=== PATIENT | female | born 1960 | race Caucasian/White ===

== ENCOUNTER → 2016-06-16 | Outpatient (CLI) | payer BC ==
[2016-06-16 11:19] LABS: Basophils % (A) 1 %; CH 29.5; Eosinophils # (A) 0.1 k/uL (0-0.7); Eosinophils % (A) 2 %; HDW 2.64; HGB 12.7 gm/dL (11.4-16.0); Hypochromasia Slight; Luc # (Auto) 0.18; Luc % (Auto) 2; Lymphocytes # (A) 1.9 k/uL (1.0-4.8); Lymphocytes % (A) 26 %; MCH 29.4 pg (25.0-35.0); MCHC 31.7 g/dL (31.0-37.0); MCV 92.5 fL (80.0-100.0); Mean Platelet Volume 7.7; Monocytes # (A) 0.3 k/uL (0-1.0); Monocytes % (A) 5 %; Neutrophils # (A) 4.7 k/uL (1.3-7.7); Neutrophils % (A) 65 %; RBC 4.32 m/uL (3.80-5.40); RDW 13.7 % (11.5-15.5); WBC 7.3 k/uL (3.8-10.6); WBC (Perox) 7.44
[2016-06-16 11:39] LABS: Glucose 86 mg/dL (74-99)
[2016-06-16 11:40] LABS: ALT 34 U/L (9-52); AST 21 U/L (14-36); Alkaline Phosphatase 93 U/L (38-126); Anion Gap 12 mmol/L; Blood Urea Nitrogen 24 mg/dL (7-17); Calcium 10.3 mg/dL (8.4-10.2); Carbon Dioxide 27 mmol/L (22-30); Chloride 105 mmol/L (98-107); Cholesterol 186 mg/dL (<200); HDL Cholesterol 75 mg/dL (40-60); Non-African American GFR(MDRD) >60 (>60 ml/min/1.73 sqM); Potassium 4.7 mmol/L (3.5-5.1); Sodium 144 mmol/L (137-145); Total Bilirubin 0.5 mg/dL (0.2-1.3); Total Protein 7.9 g/dL (6.3-8.2); Triglycerides 66 mg/dL (<150)
== END | disposition home or self-care (01) ==
LOC: LABWHC1 10:02
PROVIDERS: ATTEND Internal Medicine
DX: Z00.00 Encounter for general adult medical examination without abnormal findings (principal)
CPT/HCPCS: 36415; 80053; 80061; 82652; 84443; 85025

== ENCOUNTER → 2016-07-21 | Outpatient (CLI) | payer BC ==
--- NOTE | 2016-07-21 14:38 | US ---
EXAMINATION TYPE: US liver DATE OF EXAM: 07/21/2016 2:08 PM COMPARISON: NONE CLINICAL HISTORY: K76.9 Liver Disease. MRI at showed liver finding that was 1cm - per patient, did not have report, not symptomatic EXAM MEASUREMENTS: Liver Length: 17.5 cm Gallbladder Wall: 0.2 cm CBD: 0.4 cm Right Kidney: 10.4 x 3.7 x 4.0cm TECHNOLOGIST IMPRESSION: Pancreas: wnl Liver: 1.3cm posterior right lobe cyst seen Gallbladder: wnl Evidence for sonographic Alexander's sign: no CBD: wnl Right Kidney: wnl Visualized pancreas is slightly heterogeneous in appearance without evidence of pancreatic mass or pa ncreatic ductal dilatation. IVC is seen near hepatic dome. Liver is heterogeneously hyperechoic in ap pearance without evidence of intrahepatic ductal dilatation. Evaluation for focal masses is limited d ue to the heterogeneity. In the right hepatic lobe there is 1.4 x 0.7 cm oval anechoic lesion with in creased through transmission felt to reflect simple thin-walled cyst. Gallbladder is seen without sha dowing mobile gallstones or abnormal gallbladder wall thickening. Limited images right kidney show no gross hydronephrosis. IMPRESSION: Heterogeneity of liver likely reflects diffuse fatty infiltration. A 1.4 cm simple appear ing thin-walled oval cyst is noted in the right hepatic lobe. Correlate with old outside MRI advised.
== END | disposition home or self-care (01) ==
LOC: RADUSWWP 14:05
PROVIDERS: ATTEND Internal Medicine Gastroenterology
DX: K76.89 Other specified diseases of liver (principal)
CPT/HCPCS: 76705

== ENCOUNTER 2016-08-06 08:32 | Day surgery (SDC) | payer BC ==
[2016-08-03 14:50] VITALS: BMI 36.0
[~2016-08-06 08:32] MED LIST: LACTATED RINGERS 1,000 ML IV SCH
[2016-08-06 09:38] VITALS: RESP 16; TEMP 97.3
[2016-08-06] MEDS ORDERED: PROPOFOL 10 MG/ML 20 ML VIAL IV ONE (10:05)
--- NOTE | 2016-08-06 10:20 | P.PCN ---
Date of Procedure: 08/06/16 Procedure(s) Performed: BRIEF HISTORY: Patient is a 56-year-old pleasant female, scheduled for an elective colonoscopy as a part of screening for colorectal neoplasia. PROCEDURE PERFORMED: Colonoscopy with biopsy PREOPERATIVE DIAGNOSIS: Screening for colon cancer. IV sedation per Anesthesia. PROCEDURE: After informed consent was obtained, the patient, was brought into the endoscopy unit. IV conscious sedation was administered by Anesthesia under continuous monitoring. Initially the Olympus CF-160 flexible video colonoscope was then inserted in the rectum, gradually advanced into the cecum without any difficulty. Careful examination was performed as the scope was gradually being withdrawn. Ileocecal valve and the appendiceal orifice were visualized and appeared normal. Prep was excellent. Mucosa of the cecum, ascending colon, appeared normal. In the transverse colon there was a 5 mm polyp that was removed by biopsy. The rest of the transverse colon, descending colon, sigmoid colon, and rectum appeared normal. Moderate sigmoid diverticulosis seen. Retroflexion was performed in the rectum and no lesions were seen. The patient tolerated the procedure well. IMPRESSION: Moderate similar diverticulosis 5 mm transverse colon polyp status post removal by biopsy RECOMMENDATIONS: Findings of this examination were discussed with the patient as well as her family. She was advised to follow with the biopsy results. If the biopsy shows a tubular adenoma she can have a repeat colonoscopy in 5 years.
[2016-08-06 10:38] VITALS: BP 120/76; PULSE 67
--- NOTE | 2016-08-10 15:19 | CDI ---
Pt Name: Vanessa Shultz CONFIDENTIAL MR#: [id number] Adm Date: 08/06/2016 8:32:00 AM Printed:08/10/2016 Physician Documentation Request Page 1 of 1 ICD-10-CM Ready Physicians Documentation Request Patient: Vanessa Shultz EPI: [id number] Account: [id number] Payer: [facility] Facility: [facility] Location: - Admit Date: 08/06/2016 8:32:00 AM Query Send By: Poppy Ochoa Phone #: Ext. Communication Date: 08/10/2016 3:14:00 PM Clarification Outpatient By submitting this query, we are merely seeking further clarification of documentation to accurately reflect all conditions that you are monitoring, evaluating, treating or that extend the hospitalization or utilize additional resources of care. Please utilize your independent clinical judgment when addressing the question(s) below. Dear Doctor Ellen Carpenter, The patients Clinical Indicators include: see below Documentation Clarification OP There is a conflict regarding the sedation used during the procedure. Your procedure note states "IV conscious sedation was administered by Anesthesia", but there is other documentation within the encounter that reflects general anesthesia. Which type of sedation/anesthesia was used during the procedure? Please document as an addendum to your op report. This information is needed for proper coding and billing. Thanks! PLEASE DOCUMENT ANY ADDITIONAL DIAGNOSES AND/OR SPECIFICITY IN THE PROGRESS NOTES AND/OR DISCHARGE SUMMARY. Agreed & documented Unable to determine/unknown Disagree with the above request Need to discuss MTDD
--- NOTE | 2016-08-17 08:49 | CDI ---
Pt Name: Vanessa Shultz CONFIDENTIAL MR#: [id number] Adm Date: 08/06/2016 8:32:00 AM Printed:08/17/2016 Physician Documentation Request Page 1 of 1 ICD-10-CM Ready Physicians Documentation Request Patient: Vanessa Shultz EPI: [id number] Account: [id number] Payer: [facility] Facility: [facility] Location: - Admit Date: 08/06/2016 8:32:00 AM Query Send By: Poppy Ochoa Phone #: Ext. Communication Date: 08/17/2016 8:45:00 AM Clarification Outpatient By submitting this query, we are merely seeking further clarification of documentation to accurately reflect all conditions that you are monitoring, evaluating, treating or that extend the hospitalization or utilize additional resources of care. Please utilize your independent clinical judgment when addressing the question(s) below. Dear Doctor Ellen Carpenter, The patients Clinical Indicators include: see below Documentation Clarification OP There is a conflict regarding the sedation used during the procedure. Your procedure note states "IV conscious sedation was administered by Anesthesia", but there is other documentation within the encounter that reflects other anesthesia. Which type of sedation/anesthesia was used during the procedure? Moderate/conscious, general/unconscious? Please clarify and document as an addendum to your op report. This information is needed for proper coding and billing. If you dont understand what is needed from you, please contact my wastewater project manager, Corin Christianson at [phone]. Thank you. PLEASE DOCUMENT ANY ADDITIONAL DIAGNOSES AND/OR SPECIFICITY IN THE PROGRESS NOTES AND/OR DISCHARGE SUMMARY. Agreed & documented Unable to determine/unknown Disagree with the above request Need to discuss MTDD
--- NOTE | 2016-08-20 11:54 | PCN ---
ADDENDUM TO PROCEDURE NOTE: General anesthesia instead of IV conscious sedation utilized.
== END 2016-08-06 11:13 | disposition home or self-care (01) ==
LOC: ORWHC2ENDO 08:32
PROVIDERS: ATTEND Internal Medicine Gastroenterology
DX: Z12.11 Encounter for screening for malignant neoplasm of colon (principal); K63.5 Polyp of colon; K57.30 Diverticulosis of large intestine without perforation or abscess without bleeding; I10 Essential (primary) hypertension; E78.5 Hyperlipidemia, unspecified; K21.9 Gastro-esophageal reflux disease without esophagitis; Z79.899 Other long term (current) drug therapy; Z87.891 Personal history of nicotine dependence
CPT/HCPCS: 88305; 45380; J2704

== ENCOUNTER 2017-11-30 12:46 | Emergency (ER) | payer BC, OTHER ==
[2017-11-30] MEDS ORDERED: IBUPROFEN 600 MG TAB PO STA (13:12)
--- NOTE | 2017-11-30 14:19 | ED ---
General Adult HPI - General Chief complaint: Extremity Injury, Lower Stated complaint: rt knee pain - [facility] Time Seen by Provider: 11/30/17 13:03 Source: patient, RN notes reviewed Mode of arrival: ambulatory Limitations: no limitations - History of Present Illness Initial comments: 57-year-old female presents to the emergency department for a chief complaint of right knee pain 4 hours. Patient states she was walking in a freezer when she slipped on ice. Patient states she twisted her right knee and fell on it. Patient denies any pain in the calf or behind the knee. Patient states the pain is on the anterior aspect of the right knee. Patient denies any pain in the ankle or hip. Patient did not hit her head or sustain any other injuries. Patient has been icing the knee. Patient has no other complaints at this time including shortness of breath, chest pain, abdominal pain, nausea or vomiting, headache, or visual changes. - Related Data Home Medications Medication Instructions Recorded Confirmed Gemfibrozil [Lopid] 600 mg PO BID 08/03/16 08/06/16 Losartan-Hctz 50-12.5 mg [Hyzaar 1 each PO DAILY 08/03/16 08/06/16 50-12.5] Ranitidine HCl [Zantac] 150 mg PO DAILY 08/03/16 08/06/16 Phentermine HCl [Adipex-P] 1 tab PO DAILY 11/30/17 11/30/17 Allergies Allergy/AdvReac Type Severity Reaction Status Date / Time No Known Allergies Allergy Verified 11/30/17 12:56 Review of Systems ROS Statement: Those systems with pertinent positive or pertinent negative responses have been documented in the HPI. ROS Other: All systems not noted in ROS Statement are negative. Past Medical History Past Medical History: GERD/Reflux, Hyperlipidemia, Hypertension History of Any Multi-Drug Resistant Organisms: None Reported Past Surgical History: Hysterectomy, Orthopedic Surgery Additional Past Surgical History / Comment(s): RT ROTATOR CUFF. OVARIAN CYSTECTOMY. COLONOSCOPY Past Anesthesia/Blood Transfusion Reactions: No Reported Reaction Past Psychological History: No Psychological Hx Reported Smoking Status: Former smoker Past Alcohol Use History: None Reported Past Drug Use History: None Reported - Past Family History Mother Family Medical History: Cancer Additional Family Medical History / Comment(s): COLON Sister(s) Family Medical History: Cancer Additional Family Medical History / Comment(s): BREAST General Exam Limitations: no limitations General appearance: alert, in no apparent distress Head exam: Present: atraumatic, normocephalic, normal inspection Eye exam: Present: normal appearance ENT exam: Present: normal exam, mucous membranes moist Neck exam: Present: normal inspection, full ROM. Absent: tenderness, meningismus, lymphadenopathy Respiratory exam: Present: normal lung sounds bilaterally. Absent: respiratory distress, wheezes, rales, rhonchi, stridor Cardiovascular Exam: Present: regular rate, normal rhythm, normal heart sounds. Absent: systolic murmur, diastolic murmur, rubs, gallop, clicks Extremities exam: Present: tenderness (Tenderness to the anterior aspect of the right knee including over the patella and patellar tendon. No defect noted on palpation.), normal capillary refill (Refill less than 2 seconds and pedal pulse 2+ in the right lower extremity.), other (Sensation intact in the right lower extremity.). Absent: full ROM (Patient has about 45 flexion of the right knee. Full range motion of the right hip and right ankle. Full extension of the right knee.), joint swelling (No swelling, erythema, ecchymosis , or lacerations noted of the right knee.), calf tenderness (Negative Homans sign.) Course Vital Signs 11/30/17 12:54 Temperature 98.2 F Pulse Rate 77 Respiratory 20 Rate Blood Pressure 134/81 O2 Sat by Pulse 99 Oximetry Medical Decision Making - Medical Decision Making 57-year-old female presents to the emergency department for a chief complaint of right knee pain 4 hours. Patient slipped and fell on the right knee. No other injuries. On exam patient does have some limited range of motion of the right knee. No swelling or ecchymosis of the right knee. Tenderness to the anterior patellar aspect of the right knee. No pain in the calf or behind the knee. Negative Homans sign. Patient is able to walk on the knee but says it is painful. She did walk into the emergency department. Patient was given Motrin and ice in the emergency department. X-ray of the right knee shows osteoarthritis. Alignment and bone mineralization, joint spaces are maintained. No evident joint effusion. Possible loose body. Patient will rest ice and elevate the right knee. She will follow up outpatient with orthopedics. Patient was wrapped with a Isiah wrap in the emergency department. Patient states she has crutches at home. She is aware she can return to the emergency Department if she has any worsening symptoms. Disposition Clinical Impression: Knee pain, right Disposition: HOME SELF-CARE Condition: Good Instructions: Knee Pain (ED) Additional Instructions: Pleas rest, ice, and elevate the right knee. Use Isiah wrap as needed for compression. Use crutches as needed. Continue to take Tylenol. Follow-up with orthopedics in one to 2 days. Is patient prescribed a controlled substance at d/c from ED?: No Referrals: Ana Dos Santos MD [Primary Care Provider] - 1-2 days Rufino Gupta DO [Doctor of Osteopathic Medicine] - 1-2 days Time of Disposition: 14:43
--- NOTE | 2017-11-30 14:22 | XR ---
Right knee HISTORY: Trauma and pain 4 views of the right knee Minimal marginal spurring at the medial compartment. Alignment and bone mineralization, joint spaces are maintained. No evident joint effusion. Spurring present at the patellofemoral joint. Possible loo se body present at the level of the patellofemoral joint medially. IMPRESSION: Osteoarthritis. Suspect loose body. MRI may be of benefit.
[2017-11-30 15:23] VITALS: BP 132/80; PULSE 72; RESP 18; TEMP 98
== END 2017-11-30 15:20 | disposition home or self-care (01) ==
LOC: EC 12:46
DX: M25.561 Pain in right knee (principal); I10 Essential (primary) hypertension; E78.5 Hyperlipidemia, unspecified; K21.9 Gastro-esophageal reflux disease without esophagitis; Z87.891 Personal history of nicotine dependence; Z98.890 Other specified postprocedural states; Z79.899 Other long term (current) drug therapy; W00.0XXA Fall on same level due to ice and snow, initial encounter; X50.1XXA Overexertion from prolonged static or awkward postures, initial encounter; Y92.69 Other specified industrial and construction area as the place of occurrence of the external cause; Y99.0 Civilian activity done for income or pay
CPT/HCPCS: 99283

== ENCOUNTER → 2018-03-31 | Outpatient (CLI) | payer BC ==
--- NOTE | 2018-04-03 12:10 | MM ---
Reason for exam: screening (asymptomatic). Last mammogram was performed 1 year ago. History: Patient is postmenopausal. Family history of breast cancer in sister at age 54. Benign right mammotome panel of the right breast, March 10, 2007. Took estrogen for 4 months beginning at age 46. Physical Findings: A clinical breast exam by your physician is recommended on an annual basis and results should be correlated with mammographic findings. MG 3D Screening Mammo W/Cad Bilateral CC and MLO view(s) were taken. Prior study comparison: March 30, 2017, bilateral MG screening mammo w CAD. March 17, 2016, bilateral MG screening mammo w CAD. The breast tissue is heterogeneously dense. This may lower the sensitivity of mammography. Benign appearing bilateral calcifications. Previous mammotome biopsy in the right breast. No significant changes when compared with prior studies. ASSESSMENT: Benign, BI-RAD 2 RECOMMENDATION: Routine screening mammogram of both breasts in 1 year.
== END | disposition home or self-care (01) ==
LOC: RADMAMWWP 07:35
PROVIDERS: ATTEND Internal Medicine
DX: Z12.31 Encounter for screening mammogram for malignant neoplasm of breast (principal)
CPT/HCPCS: 77063; 77067

== ENCOUNTER → 2019-04-13 | Outpatient (CLI) | payer BC ==
--- NOTE | 2019-04-13 13:47 | MM ---
Reason for exam: screening (asymptomatic). Last mammogram was performed 1 year ago. History: Patient is postmenopausal. Family history of breast cancer in sister at age 54. Benign right mammotome panel of the right breast, March 10, 2007. Took estrogen for 4 months beginning at age 46. Physical Findings: A clinical breast exam by your physician is recommended on an annual basis and results should be correlated with mammographic findings. MG Screening Mammo w CAD Bilateral CC and MLO view(s) were taken. Prior study comparison: March 31, 2018, bilateral MG 3d screening mammo w/cad. March 30, 2017, bilateral MG screening mammo w CAD. The breast tissue is heterogeneously dense. This may lower the sensitivity of mammography. No suspicious abnormality. No significant changes when compared with prior studies. ASSESSMENT: Negative, BI-RAD 1 RECOMMENDATION: Routine screening mammogram of both breasts in 1 year.
== END | disposition home or self-care (01) ==
LOC: RADMAMWWP 07:47
PROVIDERS: ATTEND Pediatrics
DX: Z12.31 Encounter for screening mammogram for malignant neoplasm of breast (principal)
CPT/HCPCS: 77067

== ENCOUNTER → 2020-06-19 | Outpatient (CLI) | payer BC ==
--- NOTE | 2020-06-20 11:37 | MM ---
Reason for exam: screening (asymptomatic). Last mammogram was performed 1 year and 2 months ago. History: Patient is postmenopausal. Family history of breast cancer in sister at age 54. Benign right mammotome panel of the right breast, March 10, 2007. Took estrogen for 4 months beginning at age 46. Physical Findings: A clinical breast exam by your physician is recommended on an annual basis and results should be correlated with mammographic findings. MG Screening Mammo w CAD Bilateral CC and MLO view(s) were taken. Prior study comparison: April 13, 2019, bilateral MG screening mammo w CAD. March 31, 2018, bilateral MG 3d screening mammo w/cad. The breast tissue is heterogeneously dense. This may lower the sensitivity of mammography. Finding: There is a 10 mm high density, lobulated mass in the central position of the left breast. Previous mammotome biopsy in the right breast. ASSESSMENT: Incomplete: need additional imaging evaluation, BI-RAD 0 RECOMMENDATION: Special view mammogram of the left breast. If lesion persists on supplemental views, image directed ultrasound is recommended. [facility] will attempt to contact patient to return for supplemental views and ultrasound if indicated.
== END | disposition home or self-care (01) ==
LOC: RADMAMWWP 14:25
PROVIDERS: ATTEND Pediatrics
DX: Z12.31 Encounter for screening mammogram for malignant neoplasm of breast (principal)
CPT/HCPCS: 77067

== ENCOUNTER → 2020-06-19 | Outpatient (CLI) | payer BC ==
[2020-06-19 14:54] LABS: Basophils % (A) 0 %; Eosinophils # (A) 0.1 k/uL (0-0.7); Eosinophils % (A) 1 %; HCT 37.1 % (34.0-46.0); HGB 12.1 gm/dL (11.4-16.0); Hypochromasia Slight; Lymphocytes # (A) 2.8 k/uL (1.0-4.8); Lymphocytes % (A) 29 %; MCH 28.5 pg (25.0-35.0); MCHC 32.5 g/dL (31.0-37.0); MCV 87.8 fL (80.0-100.0); Mean Platelet Volume 8.6; Monocytes # (A) 0.4 k/uL (0-1.0); Monocytes % (A) 4 %; Neutrophils # (A) 6.2 k/uL (1.3-7.7); Neutrophils % (A) 64 %; Platelet Count 361 k/uL (150-450); RBC 4.23 m/uL (3.80-5.40); RDW 14.1 % (11.5-15.5); WBC 9.6 k/uL (3.8-10.6)
[2020-06-19 15:00] LABS: Appearance,Urine Cloudy (Clear); Bacteria,Urine Rare /hpf; Bilirubin,Urine Negative (Negative); Blood,Urine Trace (Negative); Color,Urine Light Yellow; Glucose,Urine (UA) Negative (Negative); Ketones,Urine Negative (Negative); Leukocyte Esterase,Urine Negative (Negative); Nitrite,Urine Negative (Negative); PH, Urine 5.5 (5.0-8.0); Protein,Urine Negative (Negative); RBC,Urine 1 /hpf (0-5); Squamous Epithelial Cell,Urine 1 /hpf (0-4); Urobilinogen,Urine <2.0 mg/dL (<2.0); WBC,Urine 2 /hpf (0-5)
[2020-06-19 15:11] LABS: Creatinine,Urine Random 79.7 mg/dL; Protein/Creatinine Ratio,Urine 0.1
[2020-06-20 04:43] LABS: % Iron Saturation 6.26 (12.00-45.00); African American GFR (CKD) 63.2 (60.0-200.0); Anion Gap 13.5 mmol/L (4.00-12.00); BUN/Creat Ratio 31.82 Ratio (12.00-20.00); Calcium 10.7 mg/dL (8.7-10.3); Carbon Dioxide 25.5 mmol/L (21.6-31.8); Ferritin 14.7 ng/mL (10.0-291.0); Non-African American GFR(CKD) 54.5 (60.0-200.0); Potassium 3.9 mmol/L (3.5-5.5)
== END | disposition home or self-care (01) ==
LOC: LABWHC1 14:20
PROVIDERS: ATTEND Nurse Practitioner Family
DX: N18.30 Chronic kidney disease, stage 3 unspecified (principal); E61.1 Iron deficiency; N25.81 Secondary hyperparathyroidism of renal origin; N39.0 Urinary tract infection, site not specified; R80.9 Proteinuria, unspecified
CPT/HCPCS: 36415; 80048; 81001; 82040; 82306; 82570; 82728; 83540; 83550; 83970; 84156; 85025

== ENCOUNTER → 2020-07-09 | Outpatient (CLI) | payer BC ==
--- NOTE | 2020-07-10 10:54 | MM ---
Reason for exam: additional evaluation requested from abnormal screening. Last mammogram was performed 1 month ago. History: Patient is postmenopausal. Family history of breast cancer in sister at age 54. Benign right mammotome panel of the right breast, March 10, 2007. Took estrogen for 4 months beginning at age 46. Physical Findings: Nurse did not find any significant physical abnormalities on exam. MG Work Up Mamm w CAD LT Spot compression CC, spot compression MLO, and LM view(s) were taken of the left breast. Prior study comparison: June 19, 2020, bilateral MG screening mammo w CAD. April 13, 2019, bilateral MG screening mammo w CAD. The breast tissue is heterogeneously dense. This may lower the sensitivity of mammography. 1.1cm irregular focal asymmetry 12 o'clock persists on spot compression. A second asymmetric density may be present just posteriorly on the lateral view. These results were verbally communicated with the patient and result sheet given to the patient on 07/09/20. ASSESSMENT: Incomplete: need additional imaging evaluation, BI-RAD 0 RECOMMENDATION: Ultrasound of the left breast.
--- NOTE | 2020-07-10 10:57 | USB ---
Reason for exam: additional evaluation requested from abnormal screening. History: Patient is postmenopausal. Family history of breast cancer in sister at age 54. Benign right mammotome panel of the right breast, March 10, 2007. Took estrogen for 4 months beginning at age 46. US Breast Workup LT Left complete breast ultrasound includes all four quadrants, the retroareolar region and axilla. Finding demonstrates a 0.6 x 0.6 x 0.9cm hypoechoic, irregular, suspicious lesion at 12 o'clock for which a biopsy is recommended, a 0.5 x 0.5 x 0.7cm mixed lesion at 8 o'clock and a 0.9 x 0.4 x 0.9cm mixed lesion at 11 o'clock, probably cyst clusters. No axillary CAD. These results were verbally communicated with the patient and result sheet given to the patient on 07/09/20. ASSESSMENT: Highly suggestive of malignancy, BI-RAD 5 RECOMMENDATION: Ultrasound core biopsy of the left breast. Called Dr. Rich's office with mammographic findings. Biopsy scheduled for 07/16/20 at 10:30. PRELIMINARY REPORT CALLED AND FAXED TO DR. RICH ON 07/09/20.
== END | disposition home or self-care (01) ==
LOC: RADMAMWWP 14:53
PROVIDERS: ATTEND Pediatrics
DX: R92.8 Other abnormal and inconclusive findings on diagnostic imaging of breast (principal)
CPT/HCPCS: 77065

== ENCOUNTER → 2020-07-16 | Day surgery (SDC) | payer BC ==
[2020-07-16 09:37] VITALS: RESP 16
[2020-07-16 11:12] VITALS: BP 126/74; PULSE 75; TEMP 98
--- NOTE | 2020-07-16 12:38 | USB ---
Addendum: Please note biopsy performed on 07/16/2020 was an ultrasound-guided core biopsy performed by the undersigned. Stereotactic Mammotome core biopsy Left 12:00 breast. HISTORY: Left 12:00 lesion The lesion in question within the Left 12:00 breast were targeted by the undersigned. Procedure was performed by the undersigned. Informed consent was obtained and all of the patients questions were answered. The standard sterile technique was utilized and appropriate local anesthesia was obtained with 1% lidocaine. Mammotome probe was advanced and multiple core samples were obtained and sent to pathology for interpretation. Microclip marker was deployed at the site of biopsy. Post procedural mammogram demonstrates appropriate deployment of radiopaque clip marker. Post procedural mammogram demonstrates appropriate clip deployment. The patient tolerated the procedure well and left the department in stable condition. Pathology results are pending. IMPRESSION: Successful stereotactic core biopsy Left 12:00 breast with pathology results pending. 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 See Surgical Pathology Cancer Case Summary and Comment. Recommendation Surgical consult of the left breast. HAMZAHD
== END ==
LOC: RADUSWWP 09:23
PROVIDERS: ATTEND Surgery
DX: C50.912 Malignant neoplasm of unspecified site of left female breast (principal); Z17.0 Estrogen receptor positive status [ER+]; Z88.6 Allergy status to analgesic agent; Z80.3 Family history of malignant neoplasm of breast
CPT/HCPCS: 77065; 88305; 88341; 88342

== ENCOUNTER 2020-08-18 06:11 | Day surgery (SDC) | payer BC ==
[2020-08-15 09:11] VITALS: BMI 37.8
[~2020-08-18 06:11] MED LIST changes: +ACETAMINOPHEN TAB 500 MG TAB PO PRN; +ALPRAZolam 0.25 MG TAB PO PRN; +DEXAMETHASONE SOD PHOSPHATE 4 MG/ML 1 ML VIAL IV ONE; +HEPARIN SODIUM,PORCINE 5,000 UNIT/ML 1 ML VIAL SQ PRN; +HYDROmorphone 0.5 MG/0.5 ML SYRINGE IVP PRN; +ONDANSETRON 4 MG/2 ML VIAL IVP ONE; +Pre Op ABX Message 1 EACH MISC MISCELLANE ONE
[2020-08-18] MEDS ORDERED: LIDOCAINE 1% (10MG/ML) FOR IV START INTRADERMA ONE (07:06)
[2020-08-18] MEDS ORDERED: LIDOCAINE 1% INJ 10MG/ML (20 ML MDV) SQ ONE (07:45)
--- NOTE | 2020-08-18 08:00 | P.GSHP ---
History of Present Illness H&P Date: 08/18/20 Chief Complaint: Left breast cancer 60-year-old female underwent recent screening mammogram. Was found to have a 1 cm mass left breast. Diagnostic mammogram confirmed a 1.1 center mass and a second density just posterior to that. She underwent ultrasound left breast which showed a BIRADS 5 9 x 6 mm lesion at 12:00. Stereotactic core biopsy was performed demonstrating invasive lobular carcinoma grade 2. She was ER/NH positive HER-2/jfef negative. Family history of breast cancer in her sister and her half sister. Recent genetics negative. Recent MRI showed no additional sites of malignancy. Patient was seen by oncology preoperatively. Past Medical History Past Medical History: Cancer, GERD/Reflux, Hyperlipidemia, Hypertension, Renal Disease, Sleep Apnea/CPAP/BIPAP Additional Past Medical History / Comment(s): "Low kidney function at 40%. Heart murmur. Current left breat cancer. CPAP use. History of Any Multi-Drug Resistant Organisms: None Reported Past Surgical History: Hysterectomy, Orthopedic Surgery Additional Past Surgical History / Comment(s): RIGHT ROTATOR CUFF REPAIR, OVARIAN CYSTECTOMY, COLONOSCOPY, right knee replacement, left thumb surgery. Past Anesthesia/Blood Transfusion Reactions: No Reported Reaction Past Psychological History: No Psychological Hx Reported Smoking Status: Former smoker Past Alcohol Use History: Rare Additional Past Alcohol Use History / Comment(s): QUIT SMOKING IN 2001. Past Drug Use History: None Reported - Past Family History Mother Family Medical History: Cancer Additional Family Medical History / Comment(s): COLON CANCER. Sister(s) Family Medical History: Cancer Additional Family Medical History / Comment(s): BREAST CANCER, also has half sister with hx breast cancer. Medications and Allergies Home Medications Medication Instructions Recorded Confirmed Type gemfibroziL [Lopid] 600 mg PO BID 08/03/16 08/18/20 History Famotidine [Pepcid] 40 mg PO HS 07/10/20 08/18/20 History amLODIPine [Norvasc] 5 mg PO QAM 07/10/20 08/18/20 History Allergies Allergy/AdvReac Type Severity Reaction Status Date / Time aspirin Allergy Itching Verified 08/15/20 08:56 Surgical - Exam Vital Signs Temp Pulse Resp BP Pulse Ox 98.2 F 68 16 154/80 98 08/18/20 07:10 08/18/20 07:10 08/18/20 07:10 08/18/20 07:10 08/18/20 07:10 Physical exam: General: Well-developed, well-nourished HEENT: Normocephalic, sclerae nonicteric Right breast: No masses, no adenopathy Left breast: Mild induration at operative site, no discrete mass, no adenopathy Abdomen: Nontender, nondistended Extremities: No edema Neuro: Alert and oriented Assessment and Plan (1) Breast cancer, left Narrative/Plan: 60-year-old female with recent diagnosis of left breast invasive lobular carcinoma. Options reviewed with the patient. We'll proceed with left breast wire localization lumpectomy with sentinel lymph node biopsy/injection. Risks of bleeding, infection, scarring, numbness, nerve injury, possible need for axillary node dissection, possible need for additional surgery, seroma, recurrence, lymphedema reviewed. She understands and wishes to proceed. Current Visit: Yes Status: Acute Code(s): C50.912 - MALIGNANT NEOPLASM OF UNSPECIFIED SITE OF LEFT FEMALE BREAST SNOMED Code(s): 094662551
--- NOTE | 2020-08-18 08:44 | NM ---
EXAMINATION TYPE: NM sentinel node injection DATE OF EXAM: 08/18/2020 COMPARISON: NONE HISTORY: BREAST CANCER TECHNIQUE AND FINDINGS: The procedure of sentinel lymph node injection was explained to the patient. The benefits, alternatives, and risks were discussed. An informed consent was then obtained. Overlying skin is cleaned with sterile alcohol. Following this, 475 uCi Tc99m Tilmanocept was inject ed in the upper outer aspect of the left nipple intradermally. The patient tolerated the procedure well without any immediate complication. The patient was kept in the radiology department for short stay after the procedure and then taken to surgery for surgical p rocedure what is presumed intraoperative gamma probe will be used for sentinel lymph node detection. IMPRESSION: left breast radiotracer injection for sentinel node localization as above.
[2020-08-18] MEDS ORDERED: HYDROmorphone (PF) 1 MG/ML ONE (08:48)
[2020-08-18] MEDS ORDERED: PROPOFOL 10 MG/ML 20 ML VIAL IV ONE (08:48)
[2020-08-18] MEDS ORDERED: fentaNYL (PF) 50 MCG/ML 2 ML AMP ONE (08:48)
[2020-08-18] MEDS ORDERED: LIDOCAINE 1% INJ 10MG/ML (20 ML MDV) ONE (08:48)
[2020-08-18] MEDS ORDERED: MIDAZOLAM 2 MG/2 ML VIAL ONE (08:48)
[2020-08-18] MEDS ORDERED: SODIUM CHLORIDE 0.9% 50 ML with ceFAZolin 2,000 MG IV ONE ×2 (08:50)
[2020-08-18] MEDS ORDERED: BUPIVACAINE (PF) 0.5% 30 ML VIAL SQ ONE ×2 (09:18)
[2020-08-18] MEDS ORDERED: METHYLENE BLUE 10 MG/ML (10 ML VIAL) INJ ONE (09:20)
[2020-08-18 10:38] VITALS: TEMP 97.5
[2020-08-18] MEDS ORDERED: HYDROcodone/APAP 5-325MG 1 EACH TAB PO PRN (10:46)
[2020-08-18] MEDS ORDERED: NALOXONE 0.4 MG/ML 1 ML VIAL IV PRN (10:46)
[2020-08-18 10:49] VITALS: RESP 16
--- NOTE | 2020-08-18 10:50 | P.OP ---
Date of Procedure: 08/18/20 Procedure(s) Performed: PREOPERATIVE DIAGNOSIS: Left breast cancer POSTOPERATIVE DIAGNOSIS: Same PROCEDURE: Left Breast wire localization lumpectomy with sentinel lymph node biopsy SURGEON: Alexis EBL: Minimal ANESTHESIA: General COMPLICATIONS: None OPERATIVE PROCEDURE: Patient was placed on the operating room table in the supine position. 2 mL of methylene blue was injected into the subareolar space. The breast was then massaged for 5 minutes. The breast was prepped and draped in usual sterile fashion. The left axilla was addressed at that time. The hot spot in the left axilla was identified. A small curvilinear incision was made using the scalpel. Dissection down through the subcutaneous tissues took place using electrocautery. Using the neoprobe I identified a total of 4 sentinel lymph nodes. All of these were blue in color. These had a benign appearance clinically. They were sent to pathology in formalin. No bleeding was seen. The subcutaneous tissues were closed using 3-0 Vicryl sutures. The skin was closed using 4-0 Monocryl sutures. The wire entrance site was then addressed. This was present at the 12:00 location. A curvilinear incision was made adjacent to the areola. The subcutaneous tissues were divided superiorly until the wire was identified. I followed the wire down into the breast tissue. An adequate lumpectomy specimen then took place around the wire. Margins of 1.5-2 cm worth attempted to be achieved. Palpation of the specimen suggested that the medial and inferior margins were somewhat close. I took an additional margin medially and inferiorly and this margin painted the appropriate color on the new margin side. The initial specimen was also painted the appropriate 6 colors. Clips were used to identify the lumpectomy cavity. The clip was confirmed to be within the lumpectomy specimen by radiology. The subcutaneous tissues were closed using 3-0 Vicryl sutures. The skin was closed using a running 4-0 Monocryl stitch. Skin glue and sterile dressings were then applied. DISPOSITION: Stable to recovery room
[2020-08-18 11:47] VITALS: BP 121/75; PULSE 58
--- NOTE | 2020-08-18 11:49 | MM ---
EXAMINATION TYPE: MG pre op needle loc LT, MG surgical specimen LT DATE OF EXAM: 08/18/2020 8:28 AM COMPARISON: NONE HISTORY: Left breast carcinoma Informed consent was obtained and all the patient's questions were answered. The lesion in question was localized mammographically. The standard sterile technique was utilized, as well as appropriate local anesthesia with 1% Lidocaine and bicarbonate. Localization needle followed by placement of a guidewire was performed under mammographic guidance. Verification images demonstrate appropriate deployment of the guidewire. The patient tolerated the procedure well and left the department in stable condition. Specimen radiograph demonstrates the clip in question to reside within the specimen. IMPRESSION: Successful needle localization and open biopsy left breast with pathology results pending . Pathology Results: Malignant A. SENTINEL LYMPH NODES, LEFT BREAST: Four lymph nodes, two nodes positive for isolated tumor cells (2 of 4 nodes positive for ITCs). See Comment. B. 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 See Surgical Pathology Cancer Case Summary. C. LEFT BREAST, INFERIOR MEDIAL MARGIN, EXCISION: Extensive lobular neoplasia (ALH/LCIS) and fibrocystic changes. No invasive malignancy identified. Recommendation Surgical consult of the left breast. SHIRA
--- NOTE | 2020-08-20 09:02 | CDI ---
Date: 08.20.20 CDS/Rhinestone Setter Name: Maite Peng Phone: If any questions, call Corin Christianson [employer] Vault Attendant at [phone] Patient Name: Shana Shultz Admit Date 08.18.20 Discharge Date: 08.18.20 ATTENTION: The [facility] Coding Staff appreciate your assistance in clarifying documentation. Please respond to the clarification below the line at the bottom and electronically sign. The [facility] Coding staff will review the response and follow-up if needed. Please note: Queries are made part of the Legal Health Record. If you have any questions, please contact the [employer] V[employer] Attendant. Dear Dr. Esipnoza In order to code to the greatest specificity and for the greatest reimbursement I need the following information: Please document whether the dissection of the lymph nodes was: __deep __ superficial/simple . Thank you for your kind consideration. node is deep MTDD
== END 2020-08-18 12:15 | disposition home or self-care (01) ==
LOC: OR 06:11
PROVIDERS: ATTEND Surgery
DX: C50.912 Malignant neoplasm of unspecified site of left female breast (principal); N60.12 Diffuse cystic mastopathy of left breast; R89.7 Abnormal histological findings in specimens from other organs, systems and tissues; K21.9 Gastro-esophageal reflux disease without esophagitis; E78.5 Hyperlipidemia, unspecified; I10 Essential (primary) hypertension; N28.89 Other specified disorders of kidney and ureter; G47.33 Obstructive sleep apnea (adult) (pediatric); Z17.0 Estrogen receptor positive status [ER+]; Z79.1 Long term (current) use of non-steroidal anti-inflammatories (NSAID); Z79.899 Other long term (current) drug therapy; Z90.710 Acquired absence of both cervix and uterus; Z98.890 Other specified postprocedural states; Z87.891 Personal history of nicotine dependence; Z99.89 Dependence on other enabling machines and devices; Z96.651 Presence of right artificial knee joint; Z88.6 Allergy status to analgesic agent; Z80.3 Family history of malignant neoplasm of breast; Z80.0 Family history of malignant neoplasm of digestive organs
CPT/HCPCS: 19301; 88342; 88307; 88341; 76098; 38792; 38525; A9520; J2250; J1644; J1100; J2405; J0690; J2001; Q9968; J3010; J1170; J2704

== ENCOUNTER → 2020-09-04 | Outpatient (CLI) | payer BC ==
--- NOTE | 2020-09-05 10:41 | ECHOF ---
Referral Reason:I10 Hypertension, E78.5 Hyperipidemia MEASUREMENTS -------- HEIGHT: 162.6 cm WEIGHT: 99.8 kg BP: 129/78 RVIDd: 3.4 cm (< 3.3) IVSd: 1.0 cm (0.6 - 1.1) LVIDd: 4.4 cm (3.9 - 5.3) LVPWd: 0.9 cm (0.6 - 1.1) IVSs: 1.7 cm LVIDs: 2.6 cm LVPWs: 1.2 cm LA Diam: 3.8 cm (2.7 - 3.8) LAESV Index (A-L): 25.73 ml/m Ao Diam: 3.2 cm (2.0 - 3.7) AV Cusp: 1.7 cm (1.5 - 2.6) MV EXCURSION: 18.221 mm (> 18.000) MV EF SLOPE: 105 mm/s (70 - 150) EPSS: 0.2 cm MV E Abdulkadir: 1.00 m/s MV DecT: 179 ms MV A Abdulkadir: 1.12 m/s MV E/A Ratio: 0.89 AR PHT: 614 ms RAP: 5.00 mmHg RVSP: 30.70 mmHg FINDINGS -------- Sinus rhythm. This was a technically good study. The left ventricular size is normal. Left ventricular wall thickness is normal. Overall left vent ricular systolic function is normal with, an EF between 60 - 65 %. The right ventricle is mildly enlarged. Normal LA size by volume 22+/-6 ml/m2. The right atrium is normal in size. Interatrial and interventricular septum intact. There is mild aortic regurgitation. Mild mitral regurgitation is present. Mild tricuspid regurgitation present. Right ventricular systolic pressure is normal at < 35 mmHg. There is no pulmonic regurgitation present. The aortic root size is normal. Normal inferior vena cava with normal inspiratory collapse consistent with estimated right atrial pre ssure of 5 mmHg. The inferior vena cava is mildly dilated. There is no pericardial effusion. CONCLUSIONS -------- 1. The left ventricular size is normal. 2. Left ventricular wall thickness is normal. 3. Overall left ventricular systolic function is normal with, an EF between 60 - 65 %. 4. The right ventricle is mildly enlarged. 5. There is mild aortic regurgitation. 6. Mild mitral regurgitation is present. 7. Mild tricuspid regurgitation present. 8. The inferior vena cava is mildly dilated. CREDIT CARD INTERVIEWER: Kylah Méndez RDCS
== END | disposition home or self-care (01) ==
LOC: RADECHMAIN 12:53
PROVIDERS: ATTEND Pediatrics
DX: I08.1 Rheumatic disorders of both mitral and tricuspid valves (principal)
CPT/HCPCS: 93306

== ENCOUNTER → 2020-10-06 | Outpatient (CLI) | payer BC ==
[2020-10-06 23:07] LABS: Basophils # (A) 0.02 X 10*3/uL (0.00-0.10); Basophils % (A) 0.2 %; Eosinophils # (A) 0.09 X 10*3/uL (0.04-0.35); HCT 40.9 % (37.2-46.3); HGB 12.5 g/dL (12.0-15.0); Lymphocytes # (A) 2.33 X 10*3/uL (0.90-5.00); Lymphocytes % (A) 25.7 %; MCH 26.3 pg (27.0-32.0); MCHC 30.6 g/dL (32.0-37.0); MCV 85.9 fL (80.0-97.0); Mean Platelet Volume 11.4 fL (9.5-12.2); Monocytes # (A) 0.51 X 10*3/uL (0.20-1.00); Monocytes % (A) 5.6 %; Neutrophils # (A) 6.07 X 10*3/uL (1.80-7.70); Neutrophils % (A) 67.1 %; Platelet Count 357 X 10*3/uL (140-440); RBC 4.76 X 10*6/uL (4.10-5.20); WBC 9.06 X 10*3/uL (4.50-10.00)
[2020-10-07 00:31] LABS: Erythrocyte Sedimentation Rate 23 mm/Hr (0-30)
== END | disposition home or self-care (01) ==
LOC: LABWHC1 14:48
PROVIDERS: ATTEND Orthopaedic Surgery
DX: Z09 Encounter for follow-up examination after completed treatment for conditions other than malignant neoplasm (principal); E78.5 Hyperlipidemia, unspecified; I10 Essential (primary) hypertension; M25.461 Effusion, right knee; Z87.891 Personal history of nicotine dependence; Z87.448 Personal history of other diseases of urinary system; Z96.651 Presence of right artificial knee joint
CPT/HCPCS: 36415; 85025; 85652; 86140

== ENCOUNTER → 2020-11-25 | Outpatient (CLI) | payer BC ==
--- NOTE | 2020-11-27 10:42 | BD ---
EXAMINATION TYPE: Axial Bone Density DATE OF EXAM: 11/25/2020 COMPARISON: NONE CLINICAL HISTORY: Postmenopausal Height: 5 FT 4 IN Weight: 219 FRAX RISK QUESTIONS: Alcohol (3 or more units per day): NO Family History (Parent hip fracture): NO Glucocorticoids (More than 3mos): NO (Ex: prednisone, prednisolone, methylprednisolone, dexamethasone, and hydrocortisone). History of Fracture in Adulthood: NO Secondary Osteoporosis: 1. Type 1 Diabetes: NO 2. Hyperthyroidism: NO 3. Menopause before 45: TOTAL HYST APPROX AGE 40 4. Malnutrition: NO 5. Chronic liver disease: NO Rheumatoid Arthritis: NO Current Tobacco Use: NO RISK FACTORS HISTORY OF: Surgery to Spine/Hip(right/left)/Wrist (right/left): LEFT WRIST SURG REMOVED BONE FOR ARTHRITIS When: 2019 Family History of Osteoporosis: NO Active: YES Diet low in dairy products/other sources of calcium: NO Postmenopausal woman: TOTAL HYST APPROX AGE 40 Take estrogen and/or progesterone medications: TOOK HRT LESS THAN SIX MONTHS AFTER HYST Lost more than 2 inches in height since high school: NO MEDICATIONS: Additional Medications: AMLODIPINE, FAMOTIDINE, GEMFIBROZIL, MAGNESIUM,NAPROXEN Additional History: BREAST CANCER 2020 RADIATION EXAM MEASUREMENTS: Bone mineral densitometry was performed using the [employer] System. Bone mineral density as measured about the Lumbar spine is: ----- L1-L4(G/cm2): 1.187 T Score Values are as follows: ----- L2: -0.4 ----- L3: -0.2 ----- L4: 0.6 ----- L1-L4: 0.1 BASELINE Bone mineral density about the R hip (g/cm2): 0.915 Bone mineral density about the L hip (g/cm2): 0.946 T Score values are as follows: -----R Neck: -0.9 -----L Neck: -0.7 -----R Total: -0.4 -----L Total: 0.5 BASELINE IMPRESSION: Normal (Values between +1 and -1 indicate normal bone mass). Consider repeating this study in 5 year s or sooner if there is some new clinical indication. NOTE: T-SCORE=SD OF THE YOUNG ADULT MEAN.
== END | disposition home or self-care (01) ==
LOC: RADBDWWP 07:18
PROVIDERS: ATTEND Internal Medicine Hematology & Oncology
DX: C50.112 Malignant neoplasm of central portion of left female breast (principal); Z17.0 Estrogen receptor positive status [ER+]; Z80.3 Family history of malignant neoplasm of breast; Z18.9 Retained foreign body fragments, unspecified material
CPT/HCPCS: 77080

== ENCOUNTER → 2021-01-20 | Outpatient (CLI) | payer BC ==
--- NOTE | 2021-01-20 23:01 | CT ---
EXAMINATION TYPE: CT knee RT wo con DATE OF EXAM: 01/20/2021 COMPARISON: None HISTORY: Effusion, pain, lateral aspect of RT knee CT DLP: 490.3 mGycm Automated exposure control for dose reduction was used. FINDINGS: Right knee total arthroplasty with no evidence of significant loosening of the tibial component. Ther e is no evidence of dislocation of the surgical hardware. No acute displaced osseous abnormality. The re is significant streak artifact from the femoral condyle component of the surgical hardware, limiti ng evaluation for joint fluid.. No sizable effusion appreciated. There are likely varicose veins of t he thigh. Fascial planes appear intact. IMPRESSION: HEART KNEE TOTAL ARTHROPLASTY WITH ANATOMIC ALIGNMENT AND NO EVIDENCE OF HARDWARE FAILURE. STREAK ART IFACT FROM FEMORAL CONDYLE COMPONENT LIMITS EVALUATION FOR JOINT FLUID. NO SIZABLE EFFUSION.
== END | disposition home or self-care (01) ==
LOC: RADCTMAIN 16:31
PROVIDERS: ATTEND Orthopaedic Surgery
DX: Z09 Encounter for follow-up examination after completed treatment for conditions other than malignant neoplasm (principal); M25.461 Effusion, right knee; E78.5 Hyperlipidemia, unspecified; I10 Essential (primary) hypertension; Z79.891 Long term (current) use of opiate analgesic; Z87.448 Personal history of other diseases of urinary system; Z96.651 Presence of right artificial knee joint

== ENCOUNTER → 2021-02-20 | Outpatient (CLI) | payer BC ==
[2021-02-20 16:07] LABS: Ionized Calcium 5.5 mg/dL (4.5-5.3)
[2021-02-20 16:12] LABS: Appearance,Urine Clear (Clear); Bacteria,Urine Moderate /hpf; Bilirubin,Urine Negative (Negative); Blood,Urine Small (Negative); Color,Urine Yellow; Glucose,Urine (UA) Negative (Negative); Ketones,Urine Negative (Negative); Leukocyte Esterase,Urine Large (Negative); Mucus,Urine Rare /hpf; Nitrite,Urine Positive (Negative); PH, Urine 5.5 (5.0-8.0); Protein,Urine Negative (Negative); RBC,Urine 20 /hpf (0-5); Specific Gravity,Urine 1.018 (1.001-1.035); Squamous Epithelial Cell,Urine 2 /hpf (0-4); Urobilinogen,Urine <2.0 mg/dL (<2.0); WBC,Urine 58 /hpf (0-5)
[2021-02-20 16:31] LABS: Creatinine,Urine Random 122.5 mg/dL; Protein/Creatinine Ratio,Urine 0.073
[2021-02-20 23:18] LABS: Basophils # (A) 0.04 X 10*3/uL (0.00-0.10); Basophils % (A) 0.6 %; Eosinophils # (A) 0.18 X 10*3/uL (0.04-0.35); Eosinophils % (A) 2.6 %; HCT 40.5 % (37.2-46.3); HGB 12.8 g/dL (12.0-15.0); Lymphocytes # (A) 1.64 X 10*3/uL (0.90-5.00); Lymphocytes % (A) 23.3 %; MCH 28.3 pg (27.0-32.0); MCHC 31.6 g/dL (32.0-37.0); MCV 89.4 fL (80.0-97.0); Mean Platelet Volume 11.5 fL (9.5-12.2); Monocytes # (A) 0.61 X 10*3/uL (0.20-1.00); Monocytes % (A) 8.7 %; Neutrophils # (A) 4.54 X 10*3/uL (1.80-7.70); Neutrophils % (A) 64.5 %; Platelet Count 338 X 10*3/uL (140-440); RBC 4.53 X 10*6/uL (4.10-5.20); RDW 15.7 % (11.5-14.5); WBC 7.03 X 10*3/uL (4.50-10.00)
[2021-02-21 04:01] LABS: % Iron Saturation 18.6 (12.00-45.00); African American GFR (CKD) 46.9 (60.0-200.0); Albumin 4.9 g/dL (3.80-4.90); Anion Gap 11.9 mmol/L (4.00-12.00); BUN/Creat Ratio 25.71 Ratio (12.00-20.00); Calcium 10.2 mg/dL (8.7-10.3); Carbon Dioxide 23.1 mmol/L (21.6-31.8); Non-African American GFR(CKD) 40.5 (60.0-200.0); Potassium 3.9 mmol/L (3.5-5.5)
[2021-02-21 04:13] LABS: Ferritin 29.9 ng/mL (10.0-291.0)
== END | disposition home or self-care (01) ==
LOC: LABWHC1 15:37
PROVIDERS: ATTEND Nurse Practitioner Family
DX: N18.2 Chronic kidney disease, stage 2 (mild) (principal); E55.9 Vitamin D deficiency, unspecified; D64.9 Anemia, unspecified; N25.81 Secondary hyperparathyroidism of renal origin; N39.0 Urinary tract infection, site not specified; R80.9 Proteinuria, unspecified
CPT/HCPCS: 36415; 80048; 81001; 82040; 82164; 82306; 82330; 82570; 82728; 83540; 83550; 83970; 84156; 85025; 86334; 86335

== ENCOUNTER → 2021-05-06 | Outpatient (CLI) | payer BC ==
--- NOTE | 2021-05-06 10:07 | P.STRESS ---
- Stress Test Note Stress Test Results/Findings: Exam Performed: stress test Exam Date: 05/06/21 Reason for Exam: ANGINA Height: 5 ft 4 in Weight: 98.2 kg Protocol: BRITT Stage: 3 Duration of Exercise: 9:00 Resting Heart Rate: 95 Resting Blood Pressure: 141/82 Maximum Achieved Heart Rate: 157 Maximum Achieved Blood Pressure: 216/91 85% PMHR: 135 100% PMHR: 159 METS: 10.3 Technologist Comment: Stress Test Results/Findings: Baseline 12-lead EKG shows sinus rhythm with an upsloping 0.[address] depression lateral precordial leads Patient exercised on a Britt protocol for 9 minutes Hypertensive response to exercise, P blood pressure 216/91 mmHg She'll short of breath at peak exercise Transient [address] depression that resolved quickly into recovery No arrhythmias Impression Good exercise capacity on a Britt protocol Hypertensive response to exercise Shortness of breath on exertion No clear cut evidence for ischemic
== END | disposition home or self-care (01) ==
LOC: RADNMMAIN 08:23
PROVIDERS: ATTEND Pediatrics
DX: I20.8 Other forms of angina pectoris (principal)
CPT/HCPCS: 93017

== ENCOUNTER 2021-09-15 08:48 | Day surgery (SDC) | payer BC ==
[2021-09-11 15:07] VITALS: BMI 38.6
[~2021-09-15 08:48] MED LIST changes: -ACETAMINOPHEN TAB 500 MG TAB PO PRN; -ALPRAZolam 0.25 MG TAB PO PRN; -DEXAMETHASONE SOD PHOSPHATE 4 MG/ML 1 ML VIAL IV ONE; -HEPARIN SODIUM,PORCINE 5,000 UNIT/ML 1 ML VIAL SQ PRN; -HYDROmorphone 0.5 MG/0.5 ML SYRINGE IVP PRN; +LIDOCAINE 1% (10MG/ML) FOR IV START INTRADERMA PRN; -ONDANSETRON 4 MG/2 ML VIAL IVP ONE; -Pre Op ABX Message 1 EACH MISC MISCELLANE ONE
[2021-09-15 09:13] VITALS: TEMP 98
[2021-09-15] MEDS ORDERED: PROPOFOL 10 MG/ML 20 ML VIAL IV ONE (09:55)
--- NOTE | 2021-09-15 10:18 | P.PCN ---
Date of Procedure: 09/15/21 Procedure(s) Performed: BRIEF HISTORY: Patient is a 61-year-old pleasant white female scheduled for an elective colonoscopy as a part of the of evaluation of prior history of colon polyps. Last colonoscopy was 5 years ago. PROCEDURE PERFORMED: Colonoscopy biopsy. PREOPERATIVE DIAGNOSIS: History of colon polyps. IV sedation per Anesthesia. PROCEDURE: After informed consent was obtained, the patient, was brought into the endoscopy unit. IV sedation was administered by Anesthesia under continuous monitoring. Digital rectal examination was normal. Initially the Olympus CF-160 flexible video colonoscope was then inserted in the rectum, gradually advanced into the cecum without any difficulty. Careful examination was performed as the scope was gradually being withdrawn. Ileocecal valve and the appendiceal orifice were visualized and appeared normal. Prep was excellent. Mucosa of the cecum, h ad 3 mm sessile polyp removed by cold biopsy. Rest of ascending colon, transverse colon, descending colon, sigmoid colon, and rectum appeared normal. Scattered sigmoid diverticulosis seen. Retroflexion was performed in the rectum and no lesions were seen. The patient tolerated the procedure well. IMPRESSION: 3 mm sessile cecal polyp status post cold biopsy Scattered sigmoid diverticulosis RECOMMENDATIONS: Findings of this examination were discussed with the patient her family. She was advised to follow with the biopsy results. If the biopsy results adenoma she can have a repeat colonoscopy in 5 years.
[2021-09-15 11:10] VITALS: BP 121/62; PULSE 69; RESP 20
== END 2021-09-15 11:11 | disposition home or self-care (01) ==
LOC: ORWHC2ENDO 08:48
PROVIDERS: ATTEND Internal Medicine Gastroenterology
DX: Z12.11 Encounter for screening for malignant neoplasm of colon (principal); D12.0 Benign neoplasm of cecum; K63.5 Polyp of colon; K57.30 Diverticulosis of large intestine without perforation or abscess without bleeding; K21.9 Gastro-esophageal reflux disease without esophagitis; I10 Essential (primary) hypertension; E78.5 Hyperlipidemia, unspecified; G47.33 Obstructive sleep apnea (adult) (pediatric); F17.200 Nicotine dependence, unspecified, uncomplicated; Z79.899 Other long term (current) drug therapy; Z88.6 Allergy status to analgesic agent
CPT/HCPCS: 88305; 45380; J2704

== ENCOUNTER → 2022-06-10 | Outpatient (CLI) | payer BC ==
[2022-06-10 13:36] VITALS: BP 127/81; PULSE 103; RESP 16; TEMP 98.7; BMI 39.0
--- NOTE | 2022-06-10 17:43 | P.HPBAR ---
Bariatric H&P - History & Physicial H&P Date: 06/10/22 History & Physicial: Visit/CC: Initial Visit Patient initial contact: Initial weight: 104.78 kg Initial weight in pounds: 231.00 Height: 5 ft 4.5 in Initial BMI: 39.0 Last weight: Current weight: 104.78 kg Current weight in pounds: 231.00 Current BMI: 39.0 Bozrah body weight (based on NIH guidelines): 55.565 kg Excess body weight loss: 0.0% The patient is a 61 year-old F who presents for Bariatric Assessment. Patient presents interested in laparoscopic sleeve gastrectomy. She was seen in the office recently as a follow-up to her breast cancer. At that time we discussed surgical options regarding weight loss in detail. She returns today for further assessment. She suffers from hypertension, hypercholesterolemia, sleep apnea, and some degree of kidney dysfunction. Patient has mild GERD symptoms on Pepcid which is well-controlled. No tobacco use, no DVT history. No dysphagia. Patient had history of previous total abdominal hysterectomy. Personal history of breast cancer. Patient says she tried Adipex without significant results. Review of Systems The patient denies any acute changes in vision or hearing, no dysphagia or odynophagia, no chest pain or shortness of breath, no dysuria or hematuria, no headache, no runny nose, no rectal bleeding or melena, no unexplained weight loss Past Medical History Past Medical History: Cancer, GERD/Reflux, Hyperlipidemia, Hypertension, Renal Disease, Sleep Apnea/CPAP/BIPAP Additional Past Medical History / Comment(s): "Low kidney function at 40%. Heart murmur. left breat cancer-2020-received 33 tx radiations. CPAP use. History of Any Multi-Drug Resistant Organisms: None Reported Past Surgical History: Hysterectomy, Orthopedic Surgery Additional Past Surgical History / Comment(s): RIGHT ROTATOR CUFF REPAIR, OVARIAN CYSTECTOMY, COLONOSCOPY, right knee replacement, left thumb surgery,l umpectomy left breast,left breast bx Past Anesthesia/Blood Transfusion Reactions: No Reported Reaction, Motion Sickness Past Psychological History: No Psychological Hx Reported Smoking Status: Former smoker Past Alcohol Use History: Rare Additional Past Alcohol Use History / Comment(s): QUIT SMOKING IN 2001. Past Drug Use History: None Reported - Past Family History Sister(s) Family Medical History: Cancer, Myocardial Infarction ([place]) Additional Family Medical History / Comment(s): BREAST CANCER, also has half sister with hx breast cancer, had a sister with [place] at age 64 Surgical - Exam Vital Signs Temp Pulse Resp BP 98.7 F 103 H 16 127/81 06/10/22 13:31 06/10/22 13:31 06/10/22 13:31 06/10/22 13:31 Physical exam: General: Well-developed, well-nourished HEENT: Normocephalic, sclerae nonicteric Abdomen: Nontender, nondistended Extremities: No edema Neuro: Alert and oriented Bariatric Assessment & Plan (1) Severe obesity (BMI 35.0-39.9) with comorbidity Narrative/Plan: CC Gio female with severe obesity and associated comorbidities. Patient is a good candidate for sleeve gastrectomy. The risks and benefits of the various bariatric surgeries were reviewed in detail. Patient remains interested in sleeve gastrectomy. Patient will begin a supervised weight loss program at this time. She will require preoperative EGD. She will follow-up back in the bariatric clinic after her upper endoscopy is performed. Status: Acute Bariatric Checklist Checklist: Plan: Checklist: EGD: 1. Hiatal hernia: 2. H. Pylori: HgbA1c: Vitamin D: Smoking: Former smoker Primary care physician referral: Dr. Pop Rich Psychiatry clearance: Cardiology clearance: Sleep study: Diet journal: VTE risk score: VTE risk level: Rehab needs at discharge:
[2022-06-10 22:16] LABS: HCT 41.5 % (37.2-46.3); HGB 12.6 g/dL (12.0-15.0); MCH 28.4 pg (27.0-32.0); MCHC 30.4 g/dL (32.0-37.0); MCV 93.7 fL (80.0-97.0); NRBC Per 100 WBC 0 /100 WBCS (0.0-0.0); Platelet Count 369 X 10*3/uL (140-440); RBC 4.43 X 10*6/uL (4.10-5.20); RDW 14.7 % (11.5-14.5); WBC 8.28 X 10*3/uL (4.50-10.00)
[2022-06-10 23:24] LABS: ALT 18 U/L (8-44); AST 17 U/L (13-35); African American GFR (CKD) 56.1 (60.0-200.0); Albumin 4.3 g/dL (3.8-4.9); Albumin/Globulin Ratio 1.57 (1.60-3.17); Alkaline Phosphatase 125 U/L (41-126); BUN/Creat Ratio 17.17 Ratio (12.00-20.00); Blood Urea Nitrogen 20.6 mg/dL (9.0-27.0); Carbon Dioxide 22.2 mmol/L (20.0-27.5); Chloride 106 mmol/L (96-109); Globulin 2.8 g/dL (1.6-3.3); Glucose 132 mg/dL (70-110); Iron 36 ug/dL (50-170); Non-African American GFR(CKD) 48.4 (60.0-200.0); Potassium 4.5 mmol/L (3.5-5.5); Sodium 143 mmol/L (135-145); Total Bilirubin <0.15 mg/dL (0.30-1.20); Total Protein 7.1 g/dL (6.2-8.2)
== END ==
LOC: BARWHC3 13:14
PROVIDERS: ATTEND Surgery
DX: E66.01 Morbid (severe) obesity due to excess calories (principal); Z87.891 Personal history of nicotine dependence; K21.9 Gastro-esophageal reflux disease without esophagitis; E78.5 Hyperlipidemia, unspecified; I10 Essential (primary) hypertension; Z68.39 Body mass index [BMI] 39.0-39.9, adult; Z88.6 Allergy status to analgesic agent
CPT/HCPCS: 80053; 80323; 82306; 82607; 82746; 83540; 84425; 85027; 93005; 99211

== ENCOUNTER → 2022-08-09 | Outpatient (CLI) | payer BC ==
[2022-08-09 10:25] VITALS: BMI 39.1
== END ==
LOC: BARWHC3 08:34 → MERGE 08:45
PROVIDERS: ATTEND Surgery
DX: E66.01 Morbid (severe) obesity due to excess calories (principal); Z88.6 Allergy status to analgesic agent; Z68.39 Body mass index [BMI] 39.0-39.9, adult; Z87.891 Personal history of nicotine dependence; Z71.3 Dietary counseling and surveillance
CPT/HCPCS: 97804

== ENCOUNTER → 2022-09-22 | Outpatient (CLI) | payer BC ==
--- NOTE | 2022-09-22 16:34 | US ---
EXAMINATION TYPE: US kidneys/renal and bladder DATE OF EXAM: 09/22/2022 COMPARISON: Liver US 2016 CLINICAL INDICATION: Female, 62 years old with history of N18.2 CKD; CKD stage 2. EXAM MEASUREMENTS: Right Kidney: 11.2 x 3.9 x 4.4 cm Left Kidney: 12.1 x 5.0 x 6.4 cm Post Void Residual Volume: 25.81 mL Right Kidney: Anechoic area seen medially at mid: 3.4 x 2.6 x 1.4 cm- questionable cystic area versus dilated renal pelvis. Left Kidney: Measures upper limits. Bladder: Appears anechoic. Bilateral Jets seen: Yes Normal Post Void Residual: Yes Increased echotexture to the liver. IMPRESSION: 1. No evidence for acute process. 2. Dilated renal pelvis on the right without evidence for hydronephrosis. 3. Hepatic steatosis.
== END | disposition home or self-care (01) ==
LOC: RADUSWWP 14:54
PROVIDERS: ATTEND Internal Medicine Nephrology
DX: N18.2 Chronic kidney disease, stage 2 (mild) (principal); K76.0 Fatty (change of) liver, not elsewhere classified; N28.89 Other specified disorders of kidney and ureter
CPT/HCPCS: 76770

== ENCOUNTER → 2022-11-26 | Outpatient (CLI) | payer BC ==
--- NOTE | 2022-11-26 13:30 | BD ---
EXAMINATION TYPE: Axial Bone Density DATE OF EXAM: 11/26/2022 CLINICAL HISTORY: 62 years old Female. ICD-10 CODE: C50.112 MALIGNANT NEOPLASM OF CENTRAL PORTION OF LEFT FEMUR Comparison: Prior DEXA bone scan November 25, 2020 Height: 63.5 Weight: 222 FRAX RISK QUESTIONS: Family History (Parent hip fracture): no History of Fracture in Adulthood: no Secondary Osteoporosis: yes 3. Menopause before 45: yes, hyst @ 40 RISK FACTORS HISTORY OF: Family History of Osteoporosis: no Active: yes Diet low in dairy products/other sources of calcium: yes Postmenopausal woman: yes Lost more than 2 inches in height since high school: no Frequent falls: no MEDICATIONS: Additional Medications: yes hbp meds, reflux meds, cholesterol, vit d , antineoplastic Additional History: yes 08/17 breast cancer with 33 treatments of radiation EXAM MEASUREMENTS: Bone mineral densitometry was performed using the [employer] System. Bone mineral density as measured about the Lumbar spine is: ----- L1-L4(G/cm2): 1.102 T Score Values are as follows: ----- L1: -1.6 ----- L2: -1.0 ----- L3: -0.7 ----- L4: 0.1 ----- L1-L4: -0.7 Z Score Values are as follows: ----- L1: -1.3 ----- L2: -0.7 ----- L3: -0.4 ----- L4: 0.3 ----- L1-L4: -0.4 Bone mineral density has: Decreased -7.2% since study of: 11/25/2020 Bone mineral density about the R hip (g/cm2): 1.005 Bone mineral density about the L hip (g/cm2): 1.019 T Score values are as follows: -----R Neck: -0.9 -----L Neck: -1.1 -----R Total: 0.0 -----L Total: 0.1 Z Score values are as follows: -----R Neck: -0.3 -----L Neck: -0.5 -----R Total: 0.2 -----L Total: 0.4 Bone mineral density has: Increased 0.2% since study of: 11/25/2020 FRAX%s: The graph provided illustrates a 7.0% chance for a major osteoporotic fx and a 0.4% chance fo r the hips probability for fx in 10 years time. IMPRESSION: Osteopenia (T Score between -2.5 and -1) femoral neck level left hip is now present. There is slightly increased risk of fracture and the patient may be considered for treatment. Re-Screen 2-5 years. NOTE: T-SCORE=SD OF THE YOUNG ADULT MEAN.
== END | disposition home or self-care (01) ==
LOC: RADBDWWP 11:25
PROVIDERS: ATTEND Internal Medicine Hematology & Oncology
DX: C50.112 Malignant neoplasm of central portion of left female breast (principal); M85.89 Other specified disorders of bone density and structure, multiple sites; I12.9 Hypertensive chronic kidney disease with stage 1 through stage 4 chronic kidney disease, or unspecified chronic kidney disease; E78.5 Hyperlipidemia, unspecified; N18.9 Chronic kidney disease, unspecified; Z17.0 Estrogen receptor positive status [ER+]; Z80.3 Family history of malignant neoplasm of breast; Z71.3 Dietary counseling and surveillance
CPT/HCPCS: 77080

== ENCOUNTER → 2022-12-10 | Outpatient (CLI) | payer BC ==
[2022-12-10 20:13] LABS: ALT 66 U/L (8-44); AST 55 U/L (13-35); Albumin 4.6 d/dL (3.8-4.9); Albumin/Globulin Ratio 1.53 Ratio (1.60-3.17); Alkaline Phosphatase 96 U/L (41-126); Calcium 10.5 mg/dL (8.7-10.3); Carbon Dioxide 20.5 mmol/L (21.6-31.8); Chloride 102 mmol/L (96-109); Glucose 82 mg/dL (70-110); Potassium 4.2 mmol/L (3.5-5.5); Sodium 139 mmol/L (135-145); Total Bilirubin 0.2 mg/dL (0.3-1.2); Total Protein 7.6 d/dL (6.2-8.2)
[2022-12-10 20:15] LABS: Basophils # (A) 0.02 X 10*3/uL (0.00-0.10); Basophils % (A) 0.3 %; Eosinophils # (A) 0.05 X 10*3/uL (0.04-0.35); Eosinophils % (A) 0.7 %; HGB 12.5 d/dL (12.0-15.0); Lymphocytes # (A) 1.95 X 10*3/uL (0.90-5.00); Lymphocytes % (A) 27.3 %; MCH 28.9 pg (27.0-32.0); MCHC 32.1 d/dL (32.0-37.0); MCV 90.1 FL (80.0-97.0); Mean Platelet Volume 11.7 FL (9.5-12.2); Monocytes # (A) 0.56 X 10*3/uL (0.20-1.00); Monocytes % (A) 7.8 %; NRBC Per 100 WBC 0 X 10*3/uL (0.00-0.01); Neutrophils # (A) 4.53 X 10*3/uL (1.80-7.70); Neutrophils % (A) 63.5 %; Platelet Count 364 X 10*3/uL (140-440); RBC 4.33 X 10*6/uL (4.10-5.20); RDW 14.2 % (11.5-14.5); WBC 7.14 X 10*3/uL (4.50-10.00)
== END | disposition home or self-care (01) ==
LOC: LABPAT 15:10
PROVIDERS: ATTEND Surgery
DX: Z01.812 Encounter for preprocedural laboratory examination (principal)
CPT/HCPCS: 80053; 85025

== ENCOUNTER 2022-12-17 06:07 | Day surgery (SDC) | payer BC ==
[2022-12-13 14:41] VITALS: BMI 36.3
--- NOTE | 2022-12-16 13:41 | P.GSHP ---
History of Present Illness H&P Date: 12/16/22 Chief Complaint: Severe obesity 62-year-old female last seen in the office in July. Patient being scheduled for laparoscopic robotic-assisted sleeve gastrectomy with hiatal hernia repair, possible open. Patient with hypertension hypercholesterolemia sleep apnea GERD and some kidney dysfunction. No history of DVT or dysphagia. No tobacco use. Most recent BMI 36. Recent EGD showed gastritis and a small hiatal hernia. Past Medical History Past Medical History: Cancer, GERD/Reflux, Hyperlipidemia, Hypertension, Renal Disease, Sleep Apnea/CPAP/BIPAP Additional Past Medical History / Comment(s): left breast cancer. heart murmur. IBS. CPAP use. HIATAL HERNIA History of Any Multi-Drug Resistant Organisms: None Reported Past Surgical History: Breast Surgery, Hysterectomy, Joint Replacement, Orthopedic Surgery Additional Past Surgical History / Comment(s): RT TKA,,ovarian cyst removal ,right rotator cuff surg. left thumb surg. left cataract removal. LT BREAST LUMPECTOMY WITH LYMPHODES UNDER ARM REMOVED , EGD Past Anesthesia/Blood Transfusion Reactions: Motion Sickness, No Reported Reaction Smoking Status: Former smoker - Past Family History Mother Family Medical History: Cancer Additional Family Medical History / Comment(s): COLON CANCER. Sister(s) Family Medical History: Cancer, Myocardial Infarction ([place]) Additional Family Medical History / Comment(s): BREAST CANCER, also has half sister with hx breast cancer, had a sister with [place] at age 64 Medications and Allergies Home Medications Medication Instructions Recorded Confirmed Type Famotidine [Pepcid] 40 mg PO HS 07/10/20 12/13/22 History amLODIPine [Norvasc] 10 mg PO QAM 07/10/20 12/13/22 History Anastrozole [Arimidex] 1 mg PO DAILY 09/11/21 12/13/22 History Metoprolol Succinate (ER) [Toprol 25 mg PO DAILY 07/08/22 12/13/22 History Xl] Phentermine HCl [Adipex-P] 37.5 mg PO DAILY 07/08/22 12/13/22 History gemfibroziL [Lopid] 600 mg PO DAILY 07/08/22 12/13/22 History Allergies Allergy/AdvReac Type Severity Reaction Status Date / Time aspirin Allergy Itching Verified 12/13/22 14:27 Surgical - Exam Physical exam: General: Well-developed, well-nourished HEENT: Normocephalic, sclerae nonicteric Abdomen: Nontender, nondistended Extremities: No edema Neuro: Alert and oriented Assessment and Plan (1) Severe obesity (BMI 35.0-39.9) with comorbidity Narrative/Plan: 62-year-old female with severe obesity. Remains interested in sleeve gastrectomy. We'll proceed with laparoscopic robotic-assisted sleeve gastrectomy with hiatal hernia repair, possible open. The risks of bleeding, infection, stenosis, stricture, leak, abscess, fistula formation, peritonitis, poor weight loss, recurrent hiatal hernia, reflux, vomiting, conversion to an open procedure, aborting sleeve gastrectomy, [place], PE, DVT, and were discussed. The patient understands and wishes to proceed. Status: Acute Code(s): E66.01 - MORBID (SEVERE) OBESITY DUE TO EXCESS CALORIES SNOMED Code(s): [id number]
[~2022-12-17 06:07] MED LIST changes: +ACETAMINOPHEN TAB 500 MG TAB PO PRN; +ENOXAPARIN 40 MG/0.4 ML SYRINGE SQ PRN; -LACTATED RINGERS 1,000 ML IV SCH; -LIDOCAINE 1% (10MG/ML) FOR IV START INTRADERMA PRN; +ONDANSETRON 4 MG/2 ML VIAL IVP PRN
[2022-12-17] MEDS ORDERED: LIDOCAINE 1% (10MG/ML) FOR IV START INTRADERMA PRN (06:18)
[2022-12-17] MEDS ORDERED: ONDANSETRON 4 MG/2 ML VIAL IVP ONE (06:18)
[2022-12-17] MEDS ORDERED: MIDAZOLAM 2 MG/2 ML VIAL IV PRN (06:18)
[2022-12-17] MEDS ORDERED: DEXAMETHASONE SOD PHOSPHATE 4 MG/ML 1 ML VIAL IV ONE (06:18)
[2022-12-17] MEDS ORDERED: LACTATED RINGERS 1,000 ML IV ONE (07:00)
[2022-12-17] MEDS ORDERED: HYDROmorphone 0.5 MG/0.5 ML SYRINGE IVP PRN (07:00)
[2022-12-17] MEDS ORDERED: PROPOFOL 10 MG/ML 20 ML VIAL IV ONE (07:25)
[2022-12-17] MEDS ORDERED: HYDROmorphone (PF) 1 MG/ML ONE (07:25)
[2022-12-17] MEDS ORDERED: diphenhydrAMINE 50 MG/ML 1 ML VIAL ONE (07:25)
[2022-12-17] MEDS ORDERED: GLYCOPYRROLATE 0.2 MG/ML 2 ML VIAL ONE (07:25)
[2022-12-17] MEDS ORDERED: KETAMINE 10 MG/ML 20 ML VIAL ONE (07:25)
[2022-12-17] MEDS ORDERED: ROCURONIUM 10 MG/ML (5 ML VIAL) IV ONE (07:25)
[2022-12-17] MEDS ORDERED: fentaNYL (PF) 50 MCG/ML 2 ML AMP ONE (07:25)
[2022-12-17] MEDS ORDERED: SUCCINYLCHOLINE CHLORIDE 200 MG/10 ML VIAL IV ONE (07:25)
[2022-12-17] MEDS ORDERED: LIDOCAINE 2% INJ 20 MG/ML (2 ML VIAL) ONE (07:25)
[2022-12-17] MEDS ORDERED: MIDAZOLAM 2 MG/2 ML VIAL ONE (07:25)
[2022-12-17] MEDS ORDERED: NEOSTIGMINE 1 MG/ML 10 ML VIAL ONE (07:25)
[2022-12-17] MEDS ORDERED: BUPIVACAINE (PF) 0.25% 30 ML VIAL SQ ONE ×2 (08:17)
[2022-12-17] MEDS ORDERED: NALOXONE 0.4 MG/ML 1 ML VIAL IV PRN (10:19)
[2022-12-17] MEDS ORDERED: SIMETHICONE 80 MG CHEWABLE PO PRN (10:19)
[2022-12-17] MEDS ORDERED: diphenhydrAMINE 50 MG/ML 1 ML VIAL IVP PRN (10:19)
[2022-12-17] MEDS ORDERED: HYOSCYAMINE ORAL DROPS 1.875 MG/15 ML BOTTLE PO PRN (10:19)
--- NOTE | 2022-12-17 10:27 | P.OP ---
Date of Procedure: 12/17/22 Procedure(s) Performed: PREOPERATIVE DIAGNOSIS: Morbid obesity, hypertension, hypercholesterolemia, sleep apnea, GERD, hiatal hernia POSTOPERATIVE DIAGNOSIS: Same PROCEDURE: Da Piotr assisted laparoscopic sleeve gastrectomy with repair hiatal hernia SURGEON: Alexis KERNL: Minimal ANESTHESIA: General COMPLICATIONS: None OPERATIVE PROCEDURE: Patient was placed in the operating table in the supine position. The patient was then placed under general anesthesia at that time. The abdomen was prepped and draped in the usual sterile fashion. A 5 mm optical trocar was placed in the left upper quadrant 20 cm inferior to the xiphoid process. Insufflation took place up to 15 mmHg. No adhesions were seen. A 5 mm subxiphoid incision was made and the medium Leann retractor was used to elevate the left lobe of liver anteriorly. This was held in place using the fixed arm retractor. An additional 12 mm trocar was placed in the right paramedian location and 2 additional 8 mm trochars were placed in the left upper quadrant one medial and one lateral to the initially placed optical trocar. All of these trochars were placed along the same plane. The initial 5 was then switched to an 8 mm trocar. The robot was then docked appropriately. The 8 mm camera was placed in the left paramedian trocar site down viewing. A fenestrated bipolar was placed in arm 1, arm 3 had the vessel sealer, arm 4 had the small grasper retractor. The hiatus was inspected and there was noted to be a small to medium sized hiatal hernia. This was further addressed after mobilization of the stomach. At that point I moved to the distal aspect of the greater curvature the stomach. The short gastric vasculature were divided using the vessel sealer. This dissection took place distally until we were 4 cm from the pylorus. The posterior adhesions were divided as well. The dissection then took place proximally along the stomach until the posterior short gastrics were divided and the fundus of the stomach was fully mobilized. At that time the hiatus was addressed. The gastrohepatic ligament was divided. A small vessel was traversing the gastrohepatic ligament and this was divided using the da Piotr clips. Circumferentially the hiatus was dissected. The distal 5 cm of the esophagus was mobilized using both blunt dissection and LigaSure. I then reapproximated the hiatus posteriorly using a short running nonabsorbable 20V lock suture. Prior to closure the 40-Cypriot dilator was advanced into the stom ach. This was then advanced all the way to the prepyloric location. The patient's stomach by palpation seemed to be of average thickness. Ethicon SLR buttress material was used at each staple load. The first firing of our stapler was a 60 mm black load, second 2 loads were green, last 3 loads were blue. The stomach was then placed in the right upper quadrant after it was fully excised. The oral gastric tube was reinserted. The stomach was insufflated with approximately 100 mL of methylene blue. No evidence of leak or obstruction was seen. Pressure was then dropped to 8 mm for 2-3 minutes. The staple line was inspected and the patient was noted to have oozing from the staple line at 3-4 separate locations. This was controlled using a 12 mm clipper and the bipolar cautery. An additional area of bleeding was seen at the very apex of our staple line near the hiatus. I could not reach that area with the 12 mm clipper. For that reason a short [id number] 3-0 silk suture was placed at the staple line with no further bleeding seen. Tisseel fibrin glue was then used along the length of the staple line. The robot was then undocked. The da Piotr laparoscope was used and the stomach was removed from the 12 mm trocar site without difficulty. The fascia at the 12mm site was closed using [id number] 0 Vicryl sutures with the laparoscopic suture passer and Cortez Brianna technique. The insufflation was evacuated. The skin at all 5 incisions were closed using 4-0 Monocryl sutures. Skin glue was then applied. DISPOSITION: Stable to recovery room
[2022-12-17] MEDS: ALBUTEROL NEBULIZED 2.5 MG/3 ML INHALATION SCH ×3 (12:10→21:01)
[2022-12-17] MEDS: ACETAMINOPHEN IV (For NPO) 1,000 MG in EMPTY BAG 1 BAG IVPB SCH ×2 (13:43→16:58)
[2022-12-17] MEDS: 0.9% NACL WITH KCL 20 MEQ/L 1,000 ML IV SCH ×2 (13:43→22:27)
[2022-12-17] MEDS: LACTATED RINGERS 1,000 ML IV SCH (16:11)
[2022-12-17] MEDS: HYDROmorphone 0.5 MG/0.5 ML SYRINGE IVP PRN ×2 (16:58→22:27)
[2022-12-17] MEDS: ENOXAPARIN 40 MG/0.4 ML SYRINGE SQ SCH (20:48)
[2022-12-18] MEDS: ACETAMINOPHEN IV (For NPO) 1,000 MG in EMPTY BAG 1 BAG IVPB SCH ×5 (00:44→23:38)
[2022-12-18] MEDS: 0.9% NACL WITH KCL 20 MEQ/L 1,000 ML IV SCH ×5 (03:10→23:38)
--- NOTE | 2022-12-18 07:49 | XR ---
EXAMINATION TYPE: XR abdomen 2V DATE OF EXAM: 12/18/2022 COMPARISON: NONE HISTORY: Post bariatric surgery, gastric sleeve and hiatal hernia repair. TECHNIQUE: Bear Keeper radiograph of the abdomen was obtained followed by 3 additional radiographs of the a bdomen after the oral ingestion of 2 ounces of Isovue-370. FINDINGS: Bear Keeper radiograph demonstrates close submucosal right upper quadrant. Nonobstructive bowel gas pattern with gas identified within the colon. Degenerative changes of the thoracolumbar spine with dextro sq uare curvature. Cardiomegaly. The visualized lung bases are clear. Surgical clips in the left breast. Postsurgical changes from gastric sleeve and hydroureter. No evidence for obstruction or leak. Contra st easily passes within the small bowel by 5 minutes. No focal stricture or mucosal irregularity iden tified. IMPRESSION: Postsurgical changes from gastric sleeve and hiatal hernia repair. No evidence for obstruction or arabella k.
[2022-12-18] MEDS: ENOXAPARIN 40 MG/0.4 ML SYRINGE SQ SCH ×2 (08:14→20:08)
[2022-12-18] MEDS: PANTOPRAZOLE 40 MG/10 ML VIAL IV SCH (08:14)
[2022-12-18] MEDS: ALBUTEROL NEBULIZED 2.5 MG/3 ML INHALATION SCH ×4 (08:47→20:23)
[2022-12-18] MEDS: METOPROLOL SUCCINATE (ER) 25 MG TAB.ER.24H PO SCH (09:11)
[2022-12-18] MEDS: amLODIPine 10 MG TAB PO SCH (09:11)
[2022-12-18 09:23] LABS: Blood Urea Nitrogen 10.5 mg/dL (9.0-27.0); Calcium 9.5 mg/dL (8.7-10.3); Carbon Dioxide 18.8 mmol/L (21.6-31.8); Chloride 104 mmol/L (96-109); Phosphorus 2.7 mg/dL (2.4-5.1); Potassium 4.4 mmol/L (3.5-5.5); Sodium 140 mmol/L (135-145)
[2022-12-18 09:31] LABS: Basophils # (A) 0.03 X 10*3/uL (0.00-0.10); Basophils % (A) 0.2 %; Eosinophils # (A) 0 X 10*3/uL (0.04-0.35); Eosinophils % (A) 0 %; HGB 12.9 d/dL (12.0-15.0); Lymphocytes # (A) 1.61 X 10*3/uL (0.90-5.00); MCH 28.8 pg (27.0-32.0); MCHC 32.3 d/dL (32.0-37.0); MCV 89.3 FL (80.0-97.0); Monocytes # (A) 0.81 X 10*3/uL (0.20-1.00); Monocytes % (A) 6.6 %; NRBC Per 100 WBC 0 X 10*3/uL (0.00-0.01); Neutrophils # (A) 9.87 X 10*3/uL (1.80-7.70); Neutrophils % (A) 79.9 %; Platelet Count 322 X 10*3/uL (140-440); RBC 4.48 X 10*6/uL (4.10-5.20); RDW 14.3 % (11.5-14.5); WBC 12.36 X 10*3/uL (4.50-10.00)
--- NOTE | 2022-12-18 12:20 | P.PN ---
Subjective Progress Note Date: 12/18/22 Principal diagnosis: Morbid obesity Patient doing well today. Underwent laparoscopic da Piotr assisted sleeve gastrectomy yesterday. Mild nausea today. Only mild discomfort. A separate GI shows no evidence of leak or obstruction. She is afebrile. She is mildly hypertensive. White blood cell count mildly elevated. Objective - Vital Signs Vital signs: Vital Signs Temp 97.6 F 12/18/22 07:44 Pulse 73 12/18/22 08:14 Resp 16 12/18/22 08:14 BP 173/90 12/18/22 07:44 Pulse Ox 98 12/18/22 09:44 FiO2 Intake & Output 12/17/22 12/18/22 12/18/22 18:59 06:59 18:59 Intake Total 750 Output Total 5 Balance 745 Weight 94.3 kg Intake: IV 750 Output: Estimated Blood Loss 5 Other: # Voids 3 4 2 - Exam Abdomen: Soft, mild tenderness, incisions clean and dry, nondistended - Labs CBC & Chem 7: 12/18/22 05:36 12/18/22 05:36 Labs: Abnormal Lab Results - Last 24 Hours (Table) 12/18/22 12/18/22 Range/Units 05:36 05:36 WBC 12.36 H (4.50-10.00) X 10*3/uL Neutrophils # 9.87 H (1.80-7.70) X 10*3/uL Eosinophils # 0 L (0.04-0.35) X 10*3/uL Carbon Dioxide 18.8 L (21.6-31.8) mmol/L Anion Gap 17.20 H (4.00-12.00) mmol/L Assessment and Plan (1) Severe obesity (BMI 35.0-39.9) with comorbidity Narrative/Plan: Patient doing well at this time. Begin bariatric clear liquids. Ambulate. Repeat CBC tomorrow. Current Visit: No Status: Acute Code(s): E66.01 - MORBID (SEVERE) OBESITY DUE TO EXCESS CALORIES SNOMED Code(s): 56289425208775
[2022-12-18] MEDS: LACTATED RINGERS 1,000 ML IV SCH (22:12)
[2022-12-19 01:46] VITALS: TEMP 98.1
[2022-12-19] MEDS: ACETAMINOPHEN IV (For NPO) 1,000 MG in EMPTY BAG 1 BAG IVPB SCH (06:25)
[2022-12-19] MEDS: LACTATED RINGERS 1,000 ML IV SCH (06:26)
[2022-12-19] MEDS ORDERED: bisacodyL 5 MG TABLET.DR PO PRN (08:00)
[2022-12-19] MEDS: amLODIPine 10 MG TAB PO SCH (08:45)
[2022-12-19] MEDS: METOPROLOL SUCCINATE (ER) 25 MG TAB.ER.24H PO SCH (08:45)
[2022-12-19] MEDS: ENOXAPARIN 40 MG/0.4 ML SYRINGE SQ SCH (08:45)
[2022-12-19] MEDS: PANTOPRAZOLE 40 MG/10 ML VIAL IV SCH (08:45)
[2022-12-19 09:04] VITALS: BP 151/84; PULSE 79; RESP 15
[2022-12-19] MEDS: ALBUTEROL NEBULIZED 2.5 MG/3 ML INHALATION SCH ×2 (09:22→11:30)
--- NOTE | 2022-12-19 09:59 | P.DS ---
Providers Expected date of discharge: 12/19/22 Attending physician: Deangelo Espinoza Consults: 12/17/22 10:19 Consult Physician Routine Consulting Provider: Jose Quiros Consult Reason/Comments: Medical management Do you want consulting provider notified?: Yes Primary care physician: Javier Rich - Discharge Diagnosis(es) (1) Severe obesity (BMI 35.0-39.9) with comorbidity Patient admitted 2 days ago after robotic sleeve gastrectomy and hiatal hernia repair. Doing well yesterday and today. No pain at present. Tolerating liquids. She would like to go home. Incisions are clean and dry. We'll discharge. Plan outpatient follow-up in 2 days. Prescription sent. Current Visit: No Status: Acute Plan - Discharge Summary Discharge Rx Participant: Yes New Discharge Prescriptions: New Ondansetron Odt [Zofran Odt] 4 mg PO Q8HR PRN #9 tab PRN Reason: Nausea bisacodyL [Dulcolax] 5 mg PO DAILY PRN #10 tab PRN Reason: Constipation Simethicone 40 mg/0.6 ml Drops [Mylicon Drops] 40 mg PO PCHS PRN #30 ml PRN Reason: Gas No Action Famotidine [Pepcid] 40 mg PO HS amLODIPine [Norvasc] 10 mg PO QAM Anastrozole [Arimidex] 1 mg PO DAILY Metoprolol Succinate (ER) [Toprol Xl] 25 mg PO DAILY gemfibroziL [Lopid] 600 mg PO DAILY Discharge Medication List Famotidine [Pepcid] 40 mg PO HS 07/10/20 [History] amLODIPine [Norvasc] 10 mg PO QAM 07/10/20 [History] Anastrozole [Arimidex] 1 mg PO DAILY 09/11/21 [History] Metoprolol Succinate (ER) [Toprol Xl] 25 mg PO DAILY 07/08/22 [History] gemfibroziL [Lopid] 600 mg PO DAILY 07/08/22 [History] Ondansetron Odt [Zofran Odt] 4 mg PO Q8HR PRN #9 tab 12/18/22 [Rx] Simethicone 40 mg/0.6 ml Drops [Mylicon Drops] 40 mg PO PCHS PRN #30 ml 12/18/22 [Rx] bisacodyL [Dulcolax] 5 mg PO DAILY PRN #10 tab 12/18/22 [Rx]
[2022-12-19 10:23] LABS: Basophils % (A) 0 %; Eosinophils # (A) 0.1 k/uL (0-0.7); Eosinophils % (A) 1 %; HCT 42.5 % (34.0-46.0); HGB 13.5 gm/dL (11.4-16.0); Hypochromasia Slight; Lymphocytes # (A) 1.6 k/uL (1.0-4.8); Lymphocytes % (A) 19 %; MCH 28.8 pg (25.0-35.0); MCHC 31.7 g/dL (31.0-37.0); MCV 90.6 fL (80.0-100.0); Mean Platelet Volume 9.1; Monocytes # (A) 0.4 k/uL (0-1.0); Monocytes % (A) 4 %; Neutrophils # (A) 6.5 k/uL (1.3-7.7); Neutrophils % (A) 75 %; Platelet Count 279 k/uL (150-450); RBC 4.68 m/uL (3.80-5.40); RDW 13.9 % (11.5-15.5); WBC 8.6 k/uL (3.8-10.6)
== END 2022-12-19 13:30 | disposition home or self-care (01) ==
LOC: OR 06:07 → 4SSUR 10:15 → OR 12-19 13:30
PROVIDERS: ATTEND Surgery
DX: E66.01 Morbid (severe) obesity due to excess calories (principal); Z68.35 Body mass index [BMI] 35.0-35.9, adult; K44.9 Diaphragmatic hernia without obstruction or gangrene; Z79.899 Other long term (current) drug therapy; K21.9 Gastro-esophageal reflux disease without esophagitis; E78.5 Hyperlipidemia, unspecified; E78.00 Pure hypercholesterolemia, unspecified; I10 Essential (primary) hypertension; N28.9 Disorder of kidney and ureter, unspecified; G47.30 Sleep apnea, unspecified; Z85.3 Personal history of malignant neoplasm of breast; R01.1 Cardiac murmur, unspecified; K58.9 Irritable bowel syndrome, unspecified; Z90.710 Acquired absence of both cervix and uterus; Z96.651 Presence of right artificial knee joint; Z98.42 Cataract extraction status, left eye; Z98.890 Other specified postprocedural states; Z87.891 Personal history of nicotine dependence; Z80.3 Family history of malignant neoplasm of breast; Z80.0 Family history of malignant neoplasm of digestive organs; Z80.9 Family history of malignant neoplasm, unspecified; Z82.49 Family history of ischemic heart disease and other diseases of the circulatory system; Z88.6 Allergy status to analgesic agent
CPT/HCPCS: 43281; 43775; S2900; 74019; 80051; 82310; 82565; 83735; 84100; 84520; 85025; 86850; 86900; 86901; 88307; 94640; 94660; 94760

== ENCOUNTER → 2022-12-21 | Outpatient (CLI) | payer BC ==
[2022-12-21 15:25] VITALS: BMI 34.2
[2022-12-21 16:22] VITALS: BP 118/78; PULSE 101; TEMP 98.6
== END ==
LOC: BARWHC3 14:34
PROVIDERS: ATTEND Surgery
DX: E66.01 Morbid (severe) obesity due to excess calories (principal); Z51.89 Encounter for other specified aftercare; Z98.84 Bariatric surgery status
CPT/HCPCS: 97802; 99211

== ENCOUNTER → 2022-12-28 | Outpatient (CLI) | payer BC ==
[2022-12-28 14:50] VITALS: BP 127/77; PULSE 70; RESP 16; TEMP 98.3; BMI 33.7
--- NOTE | 2022-12-28 17:54 | P.BASOAP ---
Subjective Progress Note Date: 12/28/22 Principal diagnosis: she is doing well. She has lost 5 pounds. Adequate protein and liquid intake. No nausea or vomiting. No GERD. No pain. Patient returns after recent sleeve gastrectomy with hiatal hernia repair on 12/17. She has lost 3 pounds. Normal heart rate. No pain. No GERD or vomiting. She is tolerating good volume of liquids and protein. Objective - Vital Signs Vital signs: Vital Signs Temp 98.3 F 12/28/22 14:47 Pulse 70 12/28/22 14:47 Resp 16 12/28/22 14:47 BP 127/77 12/28/22 14:47 Pulse Ox FiO2 Intake & Output 12/27/22 12/28/22 12/28/22 18:59 06:59 18:59 Weight 90.718 kg - Exam Abdomen: Soft, nontender, nondistended, incisions clean and dry Assessment/Plan (1) Obesity (BMI 30-39.9) Narrative/Plan: Patient doing well at this time. Continue liquid diet. Continue light lifting. Plan recheck 2-3 weeks. Check one month labs at that time. Plan: Date: 12/28/22 Initial Weight: 104.78 kg Initial BMI: 39.0 Current Weight: 90.718 kg Current BMI: 33.7 Type of Surgery: Vertical Sleeve Gastrectomy Total Volume in Band: Previous Volume: Volume Removed: Volume Added: Band Size:
== END ==
LOC: BARWHC3 14:29
PROVIDERS: ATTEND Surgery
DX: E66.01 Morbid (severe) obesity due to excess calories (principal); Z68.33 Body mass index [BMI] 33.0-33.9, adult; Z88.6 Allergy status to analgesic agent; Z87.891 Personal history of nicotine dependence
CPT/HCPCS: 97803; 99211

== ENCOUNTER → 2023-01-04 | Outpatient (CLI) | payer BC ==
--- NOTE | 2023-01-04 20:22 | CT ---
EXAMINATION TYPE: CT abdomen pelvis w con CT DLP: 1178.1 mGycm, Automated exposure control for dose reduction was used. DATE OF EXAM: 01/04/2023 5:05 PM COMPARISON: None CLINICAL INDICATION:Female, 62 years old with history of R10.12 LEFT UPPER QUADRANT PAIN; LUQ pain. p t had bariatric surgery 12/17/22. TECHNIQUE: Axial CT of the abdomen and pelvis. Sagittal and coronal reformats were created on a [employer] workstation. Contrast used:80ML mL of Isovue 300 with IV Contrast, (none if empty) Oral contrast used: with Oral Contrast (none if empty) FINDINGS: LOWER CHEST: 3 mm right middle lobe pulmonary nodule. ABDOMEN LIVER: Diffusely hypoattenuating parenchyma. GALLBLADDER AND BILE DUCTS: Unremarkable. PANCREAS: Unremarkable. SPLEEN: Unremarkable. ADRENAL GLANDS: Unremarkable. KIDNEYS AND URETERS: No evidence of hydronephrosis or renal calculus. The ureters are unremarkable. PELVIS BLADDER: Unremarkable REPRODUCTIVE: Unremarkable. ABDOMEN & PELVIS STOMACH AND BOWEL: No evidence of bowel obstruction. Postsurgical changes to the stomach. The appendi x is normal. No evidence for bowel wall thickening. No evidence for extravasation of oral contrast. PERITONEUM/RETROPERITONEUM: No evidence of pneumoperitoneum or free fluid. VASCULATURE: No evidence of aortic aneurysm. MUSCULOSKELETAL: No acute osseous abnormalities LYMPH NODES: No gross evidence for lymphadenopathy. SOFT TISSUE/ABDOMINAL WALL: Unremarkable IMPRESSION: 1. Postsurgical changes of the stomach. No evidence for organizing fluid collection or free air. No evidence of bowel obstruction. No evidence for extravasation of oral contrast. 2. Colonic diverticulosis. 3. 3 mm right middle lobe pulmonary nodule. Consider follow-up in one year for stability. 4. Hepatic steatosis.
== END | disposition home or self-care (01) ==
LOC: RADCTMAIN 16:09
PROVIDERS: ATTEND Surgery
DX: K57.92 Diverticulitis of intestine, part unspecified, without perforation or abscess without bleeding (principal); K57.30 Diverticulosis of large intestine without perforation or abscess without bleeding; K76.0 Fatty (change of) liver, not elsewhere classified; R91.1 Solitary pulmonary nodule
CPT/HCPCS: 74177; Q9967

== ENCOUNTER → 2023-01-04 | Outpatient (CLI) | payer BC ==
--- NOTE | 2023-01-05 08:28 | XR ---
EXAMINATION TYPE: XR ribs LT DATE OF EXAM: 01/04/2023 4:37 PM INDICATION: Patient age:Female; 62 years old; Reason for study: C50.112; [facility]. COMPARISON: None TECHNIQUE: Frontal and oblique views of the left ribs FINDINGS: The ribs have a normal appearance. No evidence of fracture. Overall, the lungs are clear. The cardiac silhouette is normal in size. Atherosclerotic calcification of the aorta. Surgical clips in the left breast and left axilla. The remaining osseous structures are intact. IMPRESSION: No acute osseous pathology.
== END | disposition home or self-care (01) ==
LOC: RADXRMAIN 16:18
PROVIDERS: ATTEND Internal Medicine Hematology & Oncology
DX: C50.112 Malignant neoplasm of central portion of left female breast (principal); N18.9 Chronic kidney disease, unspecified; Z17.0 Estrogen receptor positive status [ER+]; Z80.3 Family history of malignant neoplasm of breast

== ENCOUNTER → 2023-01-12 | Outpatient (CLI) | payer BC ==
[2023-01-12 15:22] LABS: African American GFR (CKD) 63 (>60 ml/min/1.73 sqM); Blood Urea Nitrogen 28 mg/dL (7-17); Non-African American GFR(CKD) 55 (>60 ml/min/1.73 sqM)
--- NOTE | 2023-01-12 20:12 | CT ---
EXAMINATION TYPE: CT thoracic spine w con DATE OF EXAM: 01/12/2023 COMPARISON: None HISTORY: midback pain. breast ca pt. CT DLP: 1031.2 mGycm Automated exposure control for dose reduction was used. Contrast: None Technique: Axial images 3 mm thick sections. Reconstructed images in the coronal and sagittal planes. FINDINGS: There is exaggeration of the thoracic kyphosis. No spinal canal stenosis is present. No suspicious ly tic or sclerotic lesions are identified. Disc heights appear preserved. Vertebral body heights are pr eserved. Posterior spinous processes appear unremarkable. No obvious foraminal narrowing is identifie d. There is some mild degenerative disc changes in the lower thoracic spine. Spondylosis is noted. Lung windows within the field of view appear clear. IMPRESSION: 1. NO SUSPICIOUS CHANGES TO SUGGEST METASTATIC DISEASE.
== END | disposition home or self-care (01) ==
LOC: RADCTMAIN 14:33
PROVIDERS: ATTEND Internal Medicine Hematology & Oncology
DX: C50.112 Malignant neoplasm of central portion of left female breast (principal); I12.9 Hypertensive chronic kidney disease with stage 1 through stage 4 chronic kidney disease, or unspecified chronic kidney disease; E78.5 Hyperlipidemia, unspecified; N18.9 Chronic kidney disease, unspecified; Z17.0 Estrogen receptor positive status [ER+]; Z71.3 Dietary counseling and surveillance; Z80.3 Family history of malignant neoplasm of breast
CPT/HCPCS: 82565; 84520; 72129; 36415; Q9967

== ENCOUNTER → 2023-01-18 | Outpatient (CLI) | payer BC ==
[2023-01-18 15:42] VITALS: BP 129/77; PULSE 74; RESP 16; TEMP 98.5; BMI 32.1
--- NOTE | 2023-01-18 16:00 | P.BASOAP ---
Subjective Progress Note Date: 01/18/23 Principal diagnosis: Morbid obesity Patient returns for recheck. Last seen 12/28. Had sleeve gastrectomy 12/17. Patient recently had some discomfort left scapular region. Patient had a hiatal hernia repair at time of her sleeve. Patient was seen by oncology who follows her for her breast cancer. X-rays of the ribs and CT of the chest were ordered in addition to the CT of the abdomen that we had performed. CAT scan abdomen shows no evidence of leak at the sleeve site. No abnormalities to explain her discomfort. Doing better now. No GERD. No vomiting. Heart rate is normal. 10 pound weight loss. Objective - Vital Signs Vital signs: Vital Signs Temp 98.5 F 01/18/23 15:39 Pulse 74 01/18/23 15:39 Resp 16 01/18/23 15:39 BP 129/77 01/18/23 15:39 Pulse Ox FiO2 Intake & Output 01/17/23 01/18/23 01/18/23 18:59 06:59 18:59 Weight 86.183 kg - Exam Abdomen: Soft, nontender, nondistended, incisions clean and dry Assessment/Plan (1) Obesity (BMI 30-39.9) Narrative/Plan: Patient doing well at this time. The left scapular pain is likely related to the hiatal hernia repair and the crural sutures. It is lessening. Continue monitoring. Continue antiacids. Gradually resume normal activities at this point. Check one month labs when she has her labs by nephrology next week. Follow up 4-6 weeks. Plan: Date: 01/18/23 Initial Weight: 104.78 kg Initial BMI: 39.0 Current Weight: 86.183 kg Current BMI: 32.1 Type of Surgery: Vertical Sleeve Gastrectomy Total Volume in Band: Previous Volume: Volume Removed: Volume Added: Band Size:
== END ==
LOC: BARWHC3 15:20
PROVIDERS: ATTEND Surgery
DX: E66.01 Morbid (severe) obesity due to excess calories (principal); Z68.32 Body mass index [BMI] 32.0-32.9, adult; Z88.6 Allergy status to analgesic agent; Z87.891 Personal history of nicotine dependence
CPT/HCPCS: 97803; 99211

== ENCOUNTER → 2023-03-30 | Outpatient (CLI) | payer BC ==
[2023-03-31 02:10] LABS: HCT 36.5 % (37.2-46.3); HGB 11.6 d/dL (12.0-15.0); MCH 28.3 pg (27.0-32.0); MCHC 31.8 d/dL (32.0-37.0); Mean Platelet Volume 12.2 FL (9.5-12.2); NRBC Per 100 WBC 0 X 10*3/uL (0.00-0.01); Platelet Count 291 X 10*3/uL (140-440); RDW 17.3 % (11.5-14.5); WBC 5.37 X 10*3/uL (4.50-10.00)
[2023-03-31 02:30] LABS: ALT 22 U/L (8-44); AST 25 U/L (13-35); Albumin 4.3 d/dL (3.8-4.9); Albumin/Globulin Ratio 1.54 Ratio (1.60-3.17); Alkaline Phosphatase 93 U/L (41-126); BUN/Creat Ratio 25.56 Ratio (12.00-20.00); Calcium 9.9 mg/dL (8.7-10.3); Carbon Dioxide 23.5 mmol/L (21.6-31.8); Chloride 102 mmol/L (96-109); Globulin 2.8 d/dL (1.6-3.3); Glucose 83 mg/dL (70-110); Potassium 3.6 mmol/L (3.5-5.5); Sodium 139 mmol/L (135-145); Total Bilirubin 0.2 mg/dL (0.3-1.2); Total Protein 7.1 d/dL (6.2-8.2)
[2023-03-31 02:43] LABS: Iron 22 UG/DL (50-170)
== END | disposition home or self-care (01) ==
LOC: LABWHC1 16:13
PROVIDERS: ATTEND Surgery
DX: E66.01 Morbid (severe) obesity due to excess calories (principal); K90.89 Other intestinal malabsorption; E55.9 Vitamin D deficiency, unspecified
CPT/HCPCS: 36415; 80053; 82306; 82607; 82746; 83540; 84425; 85027

== ENCOUNTER → 2023-04-05 | Outpatient (CLI) | payer BC ==
[2023-04-05 12:46] VITALS: BP 128/75; PULSE 67; RESP 16; TEMP 98; BMI 28.5
--- NOTE | 2023-04-05 13:54 | P.BASOAP ---
Subjective Progress Note Date: 04/05/23 Principal diagnosis: Morbid obesity Patient returns for recheck. Last seen 02/22. Doing well. Patient had recent labs showing an iron of 22 and a hemoglobin of 11.6. Patient was able to give blood a few weeks ago. Denies rectal bleeding or melena. She is due for colonoscopy in June. Family history of colon cancer in mother. She has lost 10 pounds. No pain after meals. No heartburn. Objective - Vital Signs Vital signs: Vital Signs Temp 98 F 04/05/23 12:35 Pulse 67 04/05/23 12:35 Resp 16 04/05/23 12:35 BP 128/75 04/05/23 12:35 Pulse Ox FiO2 Intake & Output 04/04/23 04/05/23 04/05/23 18:59 06:59 18:59 Weight 76.657 kg - Exam Abdomen: Soft, nontender, nondistended Assessment/Plan (1) Obesity (BMI 30-39.9) Narrative/Plan: Patient doing well at this time. Her iron and hemoglobin are somewhat low. We discussed having Dr. Solis proceed with upper and lower endoscopy in June. She will discuss further with her primary care physician. Begin iron supplementation. Plan: Date: 04/05/23 Initial Weight: 104.78 kg Initial BMI: 39.0 Current Weight: 76.657 kg Current BMI: 28.5 Type of Surgery: Vertical Sleeve Gastrectomy Total Volume in Band: Previous Volume: Volume Removed: Volume Added: Band Size:
== END ==
LOC: BARWHC3 12:18
PROVIDERS: ATTEND Surgery
DX: E66.01 Morbid (severe) obesity due to excess calories (principal); Z71.3 Dietary counseling and surveillance; Z88.6 Allergy status to analgesic agent; Z68.28 Body mass index [BMI] 28.0-28.9, adult; Z87.891 Personal history of nicotine dependence
CPT/HCPCS: 97803; 99211

== ENCOUNTER → 2023-05-04 | Outpatient (CLI) | payer BC ==
--- NOTE | 2023-05-04 09:05 | CT ---
EXAMINATION TYPE: CT chest w con DATE OF EXAM: 05/04/2023 COMPARISON: NONE HISTORY: Hx breast ca, recent scan showed spot on lung CT DLP: 234.80 mGycm. Automated Exposure Control for Dose Reduction was Utilized. TECHNIQUE: CT scan of the thorax is performed following with IV Contrast, patient injected with 100 mL of Isovue 300. FINDINGS: LUNGS: The lungs are grossly clear, there is no concerning greater than 5 mm parenchymal mass or nodu le identified. There is no pleural effusion or pneumothorax seen. The tracheobronchial tree is pat ent. MEDIASTINUM: There are no greater than 1 cm hilar or mediastinal lymph nodes. No cardiomegaly or pe ricardial effusion is seen. Coronary artery calcification is present which is noted marked underlyin g coronary artery disease. OTHER: Surgical changes from gastric sleeve procedure are seen. Surgical changes to the left breast f rom lumpectomy and axillary dissection are noted. Scoliotic curvature of the spine is seen. IMPRESSION: No suspicious pulmonary nodules or masses.
== END | disposition home or self-care (01) ==
LOC: RADCTMAIN 07:27
PROVIDERS: ATTEND Internal Medicine Hematology & Oncology
DX: C50.112 Malignant neoplasm of central portion of left female breast (principal)
CPT/HCPCS: 71260; Q9967

== ENCOUNTER → 2023-05-06 | Outpatient (CLI) | payer BC ==
--- NOTE | 2023-05-06 15:03 | US ---
EXAMINATION TYPE: US kidneys/renal and bladder DATE OF EXAM: 05/06/2023 COMPARISON: 09/22/2022 CLINICAL INDICATION: Female, 62 years old with history of N18.0 CKD; CKD EXAM MEASUREMENTS: Right Kidney: 10.2 x 3.9 x 4.2 cm Left Kidney: 10.1 x 4.4 x 5.1 cm Right Kidney: 0.7 x 0.9 x 0.7cm probable cyst seen inferior pole, fullness at renal pelvis Left Kidney: No hydronephrosis or masses seen Bladder: wnl There is no evidence for hydronephrosis at this point in time. No nephrolithiasis is seen. No chrystal s are identified. The urinary bladder is anechoic. IMPRESSION: 1. Normal sized kidneys. 2. No solid renal mass or hydronephrosis. 3 tiny cortical cysts. 4. No renal calcifications 5. Mild increased echogenicity of the kidneys possibly indicating mild medical renal disease.
== END | disposition home or self-care (01) ==
LOC: RADUSWWP 14:13
PROVIDERS: ATTEND Internal Medicine Nephrology
DX: N18.1 Chronic kidney disease, stage 1 (principal); N28.89 Other specified disorders of kidney and ureter
CPT/HCPCS: 76770

== ENCOUNTER → 2023-06-14 | Outpatient (CLI) | payer BC ==
[2023-06-14 14:59] VITALS: RESP 16; TEMP 98.1
--- NOTE | 2023-06-14 15:01 | P.BASOAP ---
Subjective Progress Note Date: 06/14/23 Principal diagnosis: Morbid obesity Patient doing well today. She is 6 months post sleeve. She thinks her iron levels are improved on iron supplementation. She gave blood last month without difficulties. She thought she was due for colonoscopy because of a family history of colon cancer but found out from her GI doctor that her last colonoscopy was a bit over a year ago. She stopped her antiacids. No GERD, no nausea or vomiting. She is due for 6 month labs. Objective - Vital Signs Vital signs: Vital Signs Temp 98.1 F 06/14/23 14:53 Pulse Resp 16 06/14/23 14:53 BP Pulse Ox FiO2 Intake & Output 06/13/23 06/14/23 06/14/23 18:59 06:59 18:59 Weight 72.121 kg - Exam Abdomen: Soft, nontender, nondistended Assessment/Plan (1) Obesity (BMI 30-39.9) Narrative/Plan: Patient doing well at this time. Continue dietary and exercise regimen. Check 6 month labs. Follow-up 2 months. Plan: Date: 06/14/23 Initial Weight: 104.78 kg Initial BMI: Current Weight: 72.121 kg Current BMI: Type of Surgery: Vertical Sleeve Gastrectomy Total Volume in Band: Previous Volume: Volume Removed: Volume Added: Band Size:
[2023-06-14 15:22] VITALS: BP 115/72; PULSE 81
[2023-06-14 18:42] LABS: HCT 39.4 % (37.2-46.3); HGB 12.5 g/dL (12.0-15.0); MCH 28.9 pg (27.0-32.0); MCHC 31.7 g/dL (32.0-37.0); MCV 91.2 FL (80.0-97.0); Mean Platelet Volume 11.4 FL (9.5-12.2); NRBC Per 100 WBC 0 X 10*3/uL (0.00-0.01); Platelet Count 300 X 10*3/uL (140-440); RBC 4.32 X 10*6/uL (4.10-5.20); RDW 14.6 % (11.5-14.5); WBC 9.92 X 10*3/uL (4.50-10.00)
[2023-06-14 19:05] LABS: Iron 192 UG/DL (50-170)
[2023-06-14 19:06] LABS: ALT 13 U/L (8-44); AST 18 U/L (13-35); Albumin 4.4 g/dL (3.8-4.9); Albumin/Globulin Ratio 1.52 Ratio (1.60-3.17); Alkaline Phosphatase 100 U/L (41-126); Blood Urea Nitrogen 29.6 mg/dL (9.0-27.0); Calcium 10.2 mg/dL (8.7-10.3); Carbon Dioxide 22.9 mmol/L (21.6-31.8); Chloride 105 mmol/L (96-109); Globulin 2.9 g/dL (1.6-3.3); Glucose 93 mg/dL (70-110); Potassium 4.1 mmol/L (3.5-5.5); Sodium 142 mmol/L (135-145); Total Bilirubin 0.3 mg/dL (0.3-1.2); Total Protein 7.3 g/dL (6.2-8.2)
== END ==
LOC: BARWHC3 14:46
PROVIDERS: ATTEND Surgery
DX: E66.01 Morbid (severe) obesity due to excess calories (principal); E55.9 Vitamin D deficiency, unspecified; K90.89 Other intestinal malabsorption; Z71.3 Dietary counseling and surveillance; Z88.6 Allergy status to analgesic agent; Z87.891 Personal history of nicotine dependence; Z68.39 Body mass index [BMI] 39.0-39.9, adult
CPT/HCPCS: 80053; 82306; 82607; 82746; 83540; 84425; 85027; 99211

== ENCOUNTER → 2023-08-11 | Outpatient (CLI) | payer BC ==
[2023-08-11 18:10] LABS: Basophils # (A) 0.04 X 10*3/uL (0.00-0.10); Basophils % (A) 0.9 %; Eosinophils # (A) 0.11 X 10*3/uL (0.04-0.35); Eosinophils % (A) 2.4 %; HCT 40.6 % (37.2-46.3); HGB 12.8 g/dL (12.0-15.0); Lymphocytes # (A) 1.42 X 10*3/uL (0.90-5.00); Lymphocytes % (A) 30.5 %; MCH 29.2 pg (27.0-32.0); MCHC 31.5 g/dL (32.0-37.0); MCV 92.7 FL (80.0-97.0); Mean Platelet Volume 11.9 FL (9.5-12.2); Monocytes # (A) 0.49 X 10*3/uL (0.20-1.00); Monocytes % (A) 10.5 %; NRBC Per 100 WBC 0 X 10*3/uL (0.00-0.01); Neutrophils # (A) 2.57 X 10*3/uL (1.80-7.70); Neutrophils % (A) 55.3 %; Platelet Count 258 X 10*3/uL (140-440); RBC 4.38 X 10*6/uL (4.10-5.20); RDW 14.6 % (11.5-14.5); WBC 4.65 X 10*3/uL (4.50-10.00)
[2023-08-11 18:38] LABS: Appearance,Urine Clear (Clear); Bilirubin,Urine Negative (Negative); Blood,Urine Negative (Negative); Color,Urine Yellow (Yellow); Ketones,Urine Negative (Negative); Nitrite,Urine Positive (Negative); Urobilinogen,Urine 0.2 E.U./DL
[2023-08-11 18:47] LABS: Bacteria,Urine 4+ (None Seen)
[2023-08-11 19:42] LABS: % Iron Saturation 8.28 (12.00-45.00); Albumin 4.3 g/dL (3.8-4.9); Blood Urea Nitrogen 17.6 mg/dL (9.0-27.0); Calcium 10.2 mg/dL (8.7-10.3); Carbon Dioxide 27.1 mmol/L (21.6-31.8); Chloride 106 mmol/L (96-109); Ferritin 13.7 ng/mL (10.0-291.0); Glucose 84 mg/dL (70-110); Iron 36 UG/DL (50-170); Phosphorus 3.4 mg/dL (2.4-5.1); Sodium 143 mmol/L (135-145); Total Iron Binding Capacity 435 UG/DL (228-460); Uric Acid 4.6 mg/dL (2.9-7.7)
[2023-08-11 20:48] LABS: Microalbumin Creatinine Ratio <12 mg/g Cr (0-30); Urine Creatinine 99.6 mg/dL (28.0-217.0)
== END | disposition home or self-care (01) ==
LOC: LABWHC1 09:33
PROVIDERS: ATTEND Internal Medicine Nephrology
DX: N18.2 Chronic kidney disease, stage 2 (mild) (principal)
CPT/HCPCS: 36415; 80048; 81001; 82040; 82043; 82306; 82570; 82728; 83540; 83550; 83735; 83970; 84100; 84550; 85025

== ENCOUNTER → 2023-08-23 | Outpatient (CLI) | payer BC ==
[2023-08-23 15:28] VITALS: BP 122/69; PULSE 62; RESP 16; TEMP 97.7; BMI 25.8
--- NOTE | 2023-08-23 17:00 | P.BASOAP ---
Subjective Progress Note Date: 08/23/23 Principal diagnosis: Morbid obesity Patient returns for recheck. She was last seen on 06/14. Sleeve last November. Patient's iron when she was checked last in May was low again. She says she stopped her iron for a few weeks before that because she ran out. She has lost 4 pounds since her last visit. No longer taking antiacids. Doing quite well overall. Objective - Vital Signs Vital signs: Vital Signs Temp 97.7 F 08/23/23 14:54 Pulse 62 08/23/23 14:54 Resp 16 08/23/23 14:54 BP 122/69 08/23/23 14:54 Pulse Ox FiO2 Intake & Output 08/22/23 08/23/23 08/23/23 18:59 06:59 18:59 Weight 69.4 kg - Exam Abdomen: Soft, nontender, nondistended Assessment/Plan (1) Obesity (BMI 30-39.9) Narrative/Plan: 63-year-old female doing well after previous sleeve gastrectomy. Continue dietary and exercise regimen. Resume vitamins and iron. Recheck in November. Plan: Date: 08/23/23 Initial Weight: 104.78 kg Initial BMI: 39.0 Current Weight: 69.4 kg Current BMI: 25.8 Type of Surgery: Vertical Sleeve Gastrectomy Total Volume in Band: Previous Volume: Volume Removed: Volume Added: Band Size:
== END ==
LOC: BARWHC3 14:33
PROVIDERS: ATTEND Surgery
DX: E66.9 Obesity, unspecified (principal); Z98.84 Bariatric surgery status; Z71.3 Dietary counseling and surveillance; Z87.891 Personal history of nicotine dependence; Z88.6 Allergy status to analgesic agent; Z68.30 Body mass index [BMI] 30.0-30.9, adult
CPT/HCPCS: 99211

== ENCOUNTER → 2023-12-06 | Outpatient (CLI) | payer BC ==
[2023-12-06 15:39] VITALS: BP 142/75; PULSE 57; RESP 16; TEMP 98.5; BMI 24.1
--- NOTE | 2023-12-06 16:25 | P.BASOAP ---
Subjective Progress Note Date: 12/06/23 Principal diagnosis: Morbid obesity Patient returns for recheck. Last seen in July. Doing well. No GERD. Does not take antiacids. Lost 10 pounds more since her last visit. She is due for annual labs. Objective - Vital Signs Vital signs: Vital Signs Temp 98.5 F 12/06/23 15:36 Pulse 57 L 12/06/23 15:36 Resp 16 12/06/23 15:36 BP 142/75 12/06/23 15:36 Pulse Ox FiO2 Intake & Output 12/05/23 12/06/23 12/06/23 18:59 06:59 18:59 Weight 64.864 kg - Exam Abdomen: Soft, nontender, nondistended Assessment/Plan (1) Obesity (BMI 30-39.9) Narrative/Plan: Patient doing well at this time. Excellent weight loss. Check annual labs. Follow-up 1 year. Plan: Date: 12/06/23 Initial Weight: 104.78 kg Initial BMI: 39.0 Current Weight: 64.864 kg Current BMI: 24.1 Type of Surgery: Vertical Sleeve Gastrectomy Total Volume in Band: Previous Volume: Volume Removed: Volume Added: Band Size:
[2023-12-07 02:42] LABS: HCT 42.8 % (37.2-46.3); HGB 13.7 g/dL (12.0-15.0); MCH 31.1 pg (27.0-32.0); MCV 97.1 FL (80.0-97.0); Mean Platelet Volume 12.2 FL (9.5-12.2); NRBC Per 100 WBC 0 X 10*3/uL (0.00-0.01); Platelet Count 240 X 10*3/uL (140-440); RBC 4.41 X 10*6/uL (4.10-5.20); WBC 6.22 X 10*3/uL (4.50-10.00)
[2023-12-07 03:41] LABS: ALT 15 U/L (8-44); AST 24 U/L (13-35); Albumin 4.5 g/dL (3.8-4.9); Albumin/Globulin Ratio 1.88 Ratio (1.60-3.17); Alkaline Phosphatase 96 U/L (41-126); BUN/Creat Ratio 18.45 Ratio (12.00-20.00); Blood Urea Nitrogen 20.3 mg/dL (9.0-27.0); Carbon Dioxide 25.7 mmol/L (21.6-31.8); Chloride 104 mmol/L (96-109); Globulin 2.4 g/dL (1.6-3.3); Glucose 96 mg/dL (70-110); Iron 83 UG/DL (50-170); Potassium 4.2 mmol/L (3.5-5.5); Sodium 143 mmol/L (135-145); Total Bilirubin 0.3 mg/dL (0.3-1.2); Total Protein 6.9 g/dL (6.2-8.2)
== END ==
LOC: BARWHC3 15:19
PROVIDERS: ATTEND Surgery
DX: E66.01 Morbid (severe) obesity due to excess calories (principal); K90.89 Other intestinal malabsorption; E55.9 Vitamin D deficiency, unspecified; Z90.3 Acquired absence of stomach [part of]; Z68.30 Body mass index [BMI] 30.0-30.9, adult; Z88.6 Allergy status to analgesic agent; Z87.891 Personal history of nicotine dependence
CPT/HCPCS: 80053; 82306; 82607; 82746; 83540; 84425; 85027; 99211

== ENCOUNTER → 2024-01-31 | Outpatient (CLI) | payer BC ==
[2024-01-31 16:23] LABS: Appearance,Urine Clear (Clear); Bilirubin,Urine Negative (Negative); Blood,Urine Negative (Negative); Color,Urine Dark Yellow (Yellow); Ketones,Urine Negative (Negative); Nitrite,Urine Negative (Negative); PH, Urine 5.5; Specific Gravity,Urine 1.014 (1.001-1.030); Urobilinogen,Urine 0.2 E.U./DL
[2024-01-31 16:49] LABS: Basophils # (A) 0.03 X 10*3/uL (0.00-0.10); Basophils % (A) 0.5 %; Eosinophils # (A) 0.16 X 10*3/uL (0.04-0.35); Eosinophils % (A) 2.5 %; HCT 42.5 % (37.2-46.3); HGB 13.7 g/dL (12.0-15.0); Lymphocytes # (A) 1.95 X 10*3/uL (0.90-5.00); Lymphocytes % (A) 30.6 %; MCH 31.4 pg (27.0-32.0); MCHC 32.2 g/dL (32.0-37.0); MCV 97.5 FL (80.0-97.0); Mean Platelet Volume 11.7 FL (9.5-12.2); Monocytes # (A) 0.58 X 10*3/uL (0.20-1.00); Monocytes % (A) 9.1 %; NRBC Per 100 WBC 0 X 10*3/uL (0.00-0.01); Neutrophils # (A) 3.65 X 10*3/uL (1.80-7.70); Neutrophils % (A) 57.1 %; Platelet Count 244 X 10*3/uL (140-440); RBC 4.36 X 10*6/uL (4.10-5.20); RDW 13.5 % (11.5-14.5); WBC 6.38 X 10*3/uL (4.50-10.00)
[2024-01-31 17:19] LABS: % Iron Saturation 30.99 (12.00-45.00); BUN/Creat Ratio 25.62 Ratio (12.00-20.00); Blood Urea Nitrogen 20.5 mg/dL (9.0-27.0); Glucose 81 mg/dL (70-110); Iron 119 UG/DL (50-170); Total Iron Binding Capacity 384 UG/DL (228-460)
[2024-01-31 17:20] LABS: Albumin 4.3 g/dL (3.8-4.9); Calcium 10.2 mg/dL (8.7-10.3); Carbon Dioxide 27.2 mmol/L (21.6-31.8); Chloride 106 mmol/L (96-109); Ferritin 26.2 ng/mL (10.0-291.0); Potassium 4.1 mmol/L (3.5-5.5); Sodium 143 mmol/L (135-145)
[2024-02-01 00:17] LABS: Microalbumin Creatinine Ratio <18 mg/g Cr (0-30); Urine Creatinine 65.4 mg/dL (28.0-217.0)
== END | disposition home or self-care (01) ==
LOC: LABWHC1 09:55
PROVIDERS: ATTEND Internal Medicine Nephrology
DX: N18.2 Chronic kidney disease, stage 2 (mild)
CPT/HCPCS: 36415; 80048; 81003; 82040; 82043; 82306; 82570; 82728; 83540; 83550; 83970; 85025

== ENCOUNTER → 2024-02-03 | Outpatient (CLI) | payer BC ==
--- NOTE | 2024-02-03 17:27 | CT ---
EXAMINATION TYPE: CT soft tissue neck wo/w con CT DLP: 625.10 mGycm, Automated exposure control for dose reduction was used. DATE OF EXAM: 02/03/2024 4:03 PM COMPARISON: CT chest 05/04/2023. CLINICAL INDICATION:Female, 63 years old with history of C50.112 MALIGNANT NEOPLA R59.0 ENLARGED LYMP HNODES; PHH, Neck pain and headache x30+ days. Hx of left breast cancer. TECHNIQUE: Noncontrast CT of the neck followed by contrast CT of the neck was performed. Intravenous administration of 100 cc of Isovue 300 was performed. Axial sections with coronal and sagittal refor mats were obtained. FINDINGS: Brain: Visualized portions are grossly unremarkable. Orbits: Unremarkable Sinuses: Grossly unremarkable. Suprahyoid Neck: The oropharynx, oral cavity, parapharyngeal and retropharyngeal spaces are clear and symmetric. The nasopharynx is unremarkable. Infrahyoid Neck: The larynx, hypopharynx, and supraglottic area are clear and symmetric. [place] to nsilliths bilaterally. Parotid Glands: Unremarkable. Submandibular Glands: Unremarkable. Musculoskeletal: Degenerative disc disease changes of the visualized spine are present. Minimal grad e 1 anterolisthesis of C3 on C4 with retrolisthesis of C5 on C6. Central disc protrusion at C2-C3 wit h minimal narrowing of the central canal. Tiny central disc protrusion at C4-C5 without significant c entral canal stenosis. Broad-based disc bulge at C5-C6 with mild narrowing of the central canal. Broa d-based disc bulge at C3-C4 with mild narrowing of the central canal. Multilevel facet arthropathy an d uncovertebral joint hypertrophy. Moderate right neural foraminal stenosis at C3-C4. Moderate left n euroforaminal stenosis C4-C5. Moderate bilateral neuroforaminal stenosis at C5-C6. Lymph nodes: No enlarged lymph nodes are identified.. Vascular structures: Mild atherosclerotic calcification of the aorta and its branches. Mild atheroscl erotic calcification at the bilateral carotid bulbs. Coronary artery calcifications identified. Visua lized vasculature is patent. Mild narrowing at the origin of the right internal carotid artery second jocelyn to calcified plaque. Thoracic Inlet/airway: Airway is patent. The lung apices are clear. Soft tissues/Thyroid: The soft tissues are unremarkable. Tiny subcentimeter hypodense nodules within both thyroid lobes. Other: none. IMPRESSION 1. No definite evidence for significant abnormality patient's symptomatology. No evidence of lymphad enopathy. 2. Multilevel degenerative disease and facet arthropathy as described above.
== END | disposition home or self-care (01) ==
LOC: RADCTMAIN 15:04
PROVIDERS: ATTEND Internal Medicine Hematology & Oncology
DX: C50.112 Malignant neoplasm of central portion of left female breast (principal); M43.12 Spondylolisthesis, cervical region; M47.812 Spondylosis without myelopathy or radiculopathy, cervical region; M99.71 Connective tissue and disc stenosis of intervertebral foramina of cervical region; M48.02 Spinal stenosis, cervical region; M50.221 Other cervical disc displacement at C4-C5 level; M50.30 Other cervical disc degeneration, unspecified cervical region; R59.0 Localized enlarged lymph nodes; N18.9 Chronic kidney disease, unspecified; Z17.0 Estrogen receptor positive status [ER+]; Z80.3 Family history of malignant neoplasm of breast
CPT/HCPCS: 70492

== ENCOUNTER → 2024-11-27 | Outpatient (CLI) | payer MEDICARE ==
--- NOTE | 2024-11-27 16:53 | BD ---
EXAMINATION TYPE: Axial Bone Density DATE OF EXAM: 11/27/2024 CLINICAL HISTORY: 64 years old Female. ICD-10 CODE: M81.0 OSTEOPENIA , Additional History: Height: 62.75 Weight: 147.7 FRAX RISK QUESTIONS: Alcohol (3 or more units per day): no Family History (Parent hip fracture): no Glucocorticoids (More than 3mos): no (Ex: prednisone, prednisolone, methylprednisolone, dexamethasone, and hydrocortisone). History of Fracture in Adulthood: no Secondary Osteoporosis: 1. Type 1 Diabetes: no 2. Hyperthyroidism: no 3. Menopause before 45: yes 4. Malnutrition: no 5. Chronic liver disease: no Rheumatoid Arthritis: no Current Tobacco Use: no RISK FACTORS HISTORY OF: Hip Fracture (Right/Left): no Spine Fracture: no History of Wrist Fracture: no Surgery to Spine/Hip(right/left)/Wrist (right/left): no MEDICATIONS: Thyroid Medications: no Osteoporosis Medications: no EXAM MEASUREMENTS: Bone mineral densitometry was performed using the [employer]. Bone mineral density as measured about the Lumbar spine is: ----- L1-L4(G/cm2): 1.095 T Score Values are as follows: ----- L1: -0.1 ----- L2: -1.3 ----- L3: -1.0 ----- L4: -0.6 ----- L1-L4: -0.7 Z Score Values are as follows: ----- L1: 1.5 ----- L2: 0.2 ----- L3: 0.6 ----- L4: 0.9 ----- L1-L4: 0.8 Bone mineral density has: decreased -0.6 % since study of: 11/26/2022 Bone mineral density about the R hip (g/cm2): 0.838 Bone mineral density about the L hip (g/cm2): 0.893 T Score values are as follows: -----R Neck: -1.5 -----L Neck: -1.3 -----R Total: -1.3 -----L Total: -0.9 Z Score values are as follows: -----R Neck: 0.0 -----L Neck: 0.1 -----R Total: -0.2 -----L Total: 0.2 Bone mineral density has: decreased -14.4 % since study of: 11/26/2022 FRAX%s: The graph provided illustrates a 8.9% chance for a major osteoporotic fx and a 0.9% chance fo r the hips probability for fx in 10 years time. IMPRESSION: Osteopenia (T Score between -2.5 and -1). There is slightly increased risk of fracture and the patient may be considered for treatment. Re-Screen 2-5 years. NOTE: T-SCORE=SD OF THE YOUNG ADULT MEAN. [facility], , 11/27/2024 4:51 PM
== END | disposition home or self-care (01) ==
LOC: RADBDWWP 10:22
PROVIDERS: ATTEND Internal Medicine Hematology & Oncology
DX: C50.112 Malignant neoplasm of central portion of left female breast (principal); M81.0 Age-related osteoporosis without current pathological fracture; I10 Essential (primary) hypertension; N18.9 Chronic kidney disease, unspecified; M85.89 Other specified disorders of bone density and structure, multiple sites; Z17.0 Estrogen receptor positive status [ER+]; Z80.3 Family history of malignant neoplasm of breast; Z78.0 Asymptomatic menopausal state
CPT/HCPCS: 77080

== ENCOUNTER → 2024-12-04 | Outpatient (CLI) | payer MEDICARE ==
[2024-12-04 15:41] VITALS: BP 164/86; PULSE 61; RESP 16; TEMP 98; BMI 25.0
--- NOTE | 2024-12-04 15:50 | P.BASOAP ---
Subjective Progress Note Date: 12/04/24 Principal diagnosis: Morbid obesity 64-year-old female returns for recheck. Last seen 1 year ago. Doing well. Weight up about 5 pounds. BMI still 25 however. No nausea or vomiting. No GERD symptoms. Still taking medications for cholesterol and hypertension. Happy with her weight loss. Objective - Vital Signs Vital signs: Vital Signs Temp 98 F 12/04/24 15:37 Pulse 61 12/04/24 15:37 Resp 16 12/04/24 15:37 BP 164/86 12/04/24 15:37 Pulse Ox FiO2 Intake & Output 12/03/24 12/04/24 12/04/24 18:59 06:59 18:59 Weight 67.132 kg - Exam Abdomen: Soft, nontender, nondistended Assessment/Plan (1) Obesity (BMI 30-39.9) Narrative/Plan: Patient doing well after prior sleeve gastrectomy. Check annual labs but will have the patient have her labs drawn in January when she sees her primary care physician and her reproduction order processor. Plan recheck 1 year. Plan: Date: 12/04/24 Initial Weight: 104.78 kg Initial BMI: 39.0 Current Weight: 67.132 kg Current BMI: 25.0 Type of Surgery: Total Volume in Band: Previous Volume: Volume Removed: Volume Added: Band Size:
== END ==
LOC: BARWHC3 15:29
PROVIDERS: ATTEND Surgery
DX: E66.01 Morbid (severe) obesity due to excess calories (principal); C50.112 Malignant neoplasm of central portion of left female breast; M81.0 Age-related osteoporosis without current pathological fracture; I12.9 Hypertensive chronic kidney disease with stage 1 through stage 4 chronic kidney disease, or unspecified chronic kidney disease; N18.9 Chronic kidney disease, unspecified; Z80.3 Family history of malignant neoplasm of breast; Z17.0 Estrogen receptor positive status [ER+]; Z68.25 Body mass index [BMI] 25.0-25.9, adult; Z87.891 Personal history of nicotine dependence; Z88.6 Allergy status to analgesic agent
CPT/HCPCS: 99211